=== PATIENT | female | born 2000 | race Caucasian/White ===

== ENCOUNTER → 2019-08-04 14:28 | Outpatient (BNVA) | payer OTHER, SELFPAY | PROVIDERS: Family Provider Family Medicine; PCP Family Medicine; Visit Provider Nurse Practitioner Family | DX: K29.70 Gastritis, unspecified, without bleeding (principal); K29.00 Acute gastritis without bleeding | CPT/HCPCS: 80053; 85025 ==

== ENCOUNTER → 2020-06-07 10:40 | Outpatient (BNVA) | payer BC, SELFPAY | PROVIDERS: Family Provider Family Medicine; Visit Provider Nurse Practitioner Women's Health | DX: Z01.419 Encounter for gynecological examination (general) (routine) without abnormal findings (principal); N92.6 Irregular menstruation, unspecified; Z30.431 Encounter for routine checking of intrauterine contraceptive device | CPT/HCPCS: 88175 ==

== ENCOUNTER → 2020-06-13 09:38 | Outpatient (BNVA) | payer BC, SELFPAY | PROVIDERS: Family Provider Family Medicine; Visit Provider Nurse Practitioner Women's Health | DX: Z30.431 Encounter for routine checking of intrauterine contraceptive device (principal); N83.202 Unspecified ovarian cyst, left side | CPT/HCPCS: 76830 ==

== ENCOUNTER → 2020-06-15 11:54 | Outpatient (BNVA) | payer BC, SELFPAY | PROVIDERS: Family Provider Family Medicine; Visit Provider Nurse Practitioner | DX: F41.8 Other specified anxiety disorders (principal) | CPT/HCPCS: 80053; 84443; 85025 ==

== ENCOUNTER → 2020-11-06 08:57 | Outpatient (BNVA) | payer BC, SELFPAY | PROVIDERS: Family Provider Family Medicine; PCP Nurse Practitioner; Visit Provider Nurse Practitioner Family | DX: Z20.822 Contact with and (suspected) exposure to COVID-19 (principal) | CPT/HCPCS: 87635 ==

== ENCOUNTER → 2021-02-07 08:01 | Outpatient (BNVA) | payer BC, SELFPAY | PROVIDERS: Family Provider Family Medicine; PCP Nurse Practitioner; Visit Provider Nurse Practitioner Women's Health | DX: N92.6 Irregular menstruation, unspecified (principal) | CPT/HCPCS: 81025 ==

== ENCOUNTER → 2021-02-15 11:48 | Outpatient (BNVA) | payer BC, SELFPAY | PROVIDERS: Family Provider Family Medicine; PCP Nurse Practitioner; Visit Provider Nurse Practitioner Women's Health | DX: O26.859 Spotting complicating pregnancy, unspecified trimester (principal); Z3A.00 Weeks of gestation of pregnancy not specified | CPT/HCPCS: 84702; 85025; 86850; 86900 ==

== ENCOUNTER → 2021-02-18 10:15 | Outpatient (BNVA) | payer BC, SELFPAY | PROVIDERS: Family Provider Family Medicine; PCP Nurse Practitioner; Visit Provider Nurse Practitioner Women's Health | DX: O26.859 Spotting complicating pregnancy, unspecified trimester (principal); Z3A.00 Weeks of gestation of pregnancy not specified | CPT/HCPCS: 84702 ==

== ENCOUNTER → 2021-02-25 10:41 | Outpatient (BNVA) | payer BC, SELFPAY | PROVIDERS: Family Provider Family Medicine; PCP Nurse Practitioner; Visit Provider Nurse Practitioner Women's Health | DX: O03.4 Incomplete spontaneous abortion without complication (principal) | CPT/HCPCS: 84702 ==

== ENCOUNTER 2021-10-16 06:49 | Outpatient (CLI) | payer BC, MEDICAID, SELFPAY ==
[2021-10-16 06:49] VITALS: BMI 36.6
[2021-10-16 06:58] VITALS: TEMP 35.6
[2021-10-16 07:01] VITALS: BP 117/56; PULSE 97
[2021-10-16 07:05] VITALS: RESP 18
[2021-10-16 07:36] LABS: Basophils % 0.3 %; Eosinophils # 0.1 10^3/uL (0.0-0.8); Eosinophils % 0.7 %; Hematocrit 35.8 % (37.0-47.0); Hemoglobin 12.2 g/dL (11.5-15.3); Lymphocytes # 2.3 10^3/uL (0.8-4.8); Mean Corpuscular HGB Conc 34.1 g/dL (30.0-36.0); Mean Corpuscular Hemoglobin 32.3 pg (28.0-34.0); Mean Corpuscular Volume 94.7 fl (81-99); Mean Platelet Volume 9.5 fL (7.4-10.4); Monocytes # 0.9 10^3/uL (0.2-0.9); Monocytes % 6.3 %; Neutrophils # 10.18 10^3/uL (1.8-7.7); Nucleated Red Blood Cells % 0 %; Platelet Count 221 10^3/cmm (130-400); Red Blood Count 3.78 10^6/uL (4.1-5.3); Red Cell Distribution Width 12.9 % (12.1-15.1); White Blood Count 13.8 10^3/uL (4.0-10.0)
[2021-10-16] MEDS: lactated ringers 1,000 ML 999 ML IV (07:38)
[2021-10-16] MEDS: ondansetron 2 mg/ML SDV 2 mL 4 MG IVP (07:38)
[2021-10-16 07:50] LABS: Chloride 103 mmol/L (98-107); Potassium 3.8 mmol/L (3.5-5.1); Sodium 140 mmol/L (136-145)
[2021-10-16 08:26] LABS: Bacteria Urine TRACE /hpf; Bilirubin Urine Neg (Negative); Blood Urine Neg (Negative); Glucose Urine UA Norm (Normal); Ketones Urine Negative (Negative); Leukocyte Esterase Urine Negative (Negative); Mucus Urine 1+ /hpf; Nitrate Urine Negative (Negative); Protein Urine Neg (Negative); Urine Appearance SL Hazy (CLEAR); Urine Color Yellow (Yellow); Urobilinogen Urine Norm (Negative); pH Urine 6.5 (5-7)
[2021-10-16 08:27] LABS: Add Urine Culture? No; Amorphous Sediment Urine 2+ /hpf; Coarse Granular Casts Urine T /lpf
[2021-10-16 08:34] LABS: Alanine Aminotransferase 16 U/L (0-33); Alkaline Phosphatase 175 IU/L (35-105); Anion Gap 18.8 (5-19); Aspartate Amino Transferase 17 U/L (0-32); Blood Urea Nitrogen 7 mg/dL (6-20); Calcium 9.3 mg/dL (8.5-10.5); Carbon Dioxide 22 mmol/L (22-29); Globulin 2.5 g/dL (1.3-4.6); Glomerular Filtration Rate 199.6 mL/min (90-130); Glucose 104 mg/dL (65-115); Osmolality Calculated 288 mOsm/kg (285-295); Total Bilirubin 0.2 mg/dL (0.15-1.2); Total Protein 5.9 g/dL (6.6-8.7)
[2021-10-16 08:44] LABS: Albumin Level 3.4 g/dL (3.5-5.2)
[2021-10-16] MEDS: acetaminophen 325 mg Tablet 650 MG PO (09:08)
[2021-10-16] MEDS: famotidine 20 mg/2 mL INJ IVP (09:08)
== END 2021-10-16 09:24 | disposition home or self-care (01) ==
LOC: OPOB 06:49 → OBGYN 06:50
PROVIDERS: Family Provider Family Medicine; PCP Nurse Practitioner; Visit Provider Family Medicine
DX: O26.899 Other specified pregnancy related conditions, unspecified trimester (principal); Z3A.00 Weeks of gestation of pregnancy not specified; M54.9 Dorsalgia, unspecified
CPT/HCPCS: 36415; 59025; 80053; 81001; 85025; 96374; 99211; J2405; J3490

== ENCOUNTER 2022-01-11 19:40 | Observation (INO) | payer BC, MEDICAID, SELFPAY ==
[2022-01-11 20:15] VITALS: BP 123/79; PULSE 80; RESP 18; TEMP 36.3; O2SAT 97; BMI 36.6
--- NOTE | 2022-01-11 20:35 | USR_ITS ---
PROCEDURE INFORMATION: Exam: US Abdomen, Limited; Right Upper Quadrant Exam date and time: 01/11/2022 9:07 PM Age: 21 years old Clinical indication: Abdominal pain; Acute; Additional info: Ruq pain TECHNIQUE: Imaging protocol: Real time ultrasound of the abdomen with image documentation. Limited exam focused on the right upper quadrant. COMPARISON: US transvaginal [id number] 06/13/2020 9:41 AM FINDINGS: Liver: Normal. No masses. Gallbladder: Small gallstones and sludge noted at the gallbladder neck. Borderline gallbladder wall thickening at 3-4 mm. No gallbladder distension. Positive sonographic Gannon sign. Biliary ducts: Normal. No stones. No dilation. Pancreas: Visualized pancreas is unremarkable. Right kidney: Right kidney measures 10.5 cm in length. No mass. No hydronephrosis. US/US gall bladder [id number] IMPRESSION: Small gallstones and sludge at the gallbladder neck. Sonographic findings are equivocal for acute cholecystitis. Correlate with clinical presentation and if clinically warranted can be further evaluated with nuclear medicine HIDA scan.
[2022-01-11 20:36] LABS: Basophils # 0.1 10^3/uL (0.0-0.1); Basophils % 0.7 %; Eosinophils # 0.1 10^3/uL (0.0-0.8); Eosinophils % 1.7 %; Hematocrit 40.3 % (37.0-47.0); Hemoglobin 13.2 g/dL (11.5-15.3); Lymphocytes # 2.3 10^3/uL (0.8-4.8); Lymphocytes % 31.6 %; Mean Corpuscular HGB Conc 32.8 g/dL (30.0-36.0); Mean Corpuscular Hemoglobin 30.2 pg (28.0-34.0); Mean Corpuscular Volume 92.2 fl (81-99); Mean Platelet Volume 8.7 fL (7.4-10.4); Monocytes # 0.5 10^3/uL (0.2-0.9); Monocytes % 6.3 %; Neutrophils # 4.26 10^3/uL (1.8-7.7); Neutrophils % 59.6 %; Nucleated Red Blood Cells % 0 %; Platelet Count 305 10^3/cmm (130-400); Red Blood Count 4.37 10^6/uL (4.1-5.3); Red Cell Distribution Width 12.1 % (12.1-15.1); White Blood Count 7.2 10^3/uL (4.0-10.0)
--- NOTE | 2022-01-11 20:36 | ED_ITS ---
HPI - Abdominal Pain General: Chief Complaint: Abdominal Pain Stated Complaint: ABD Pain Time Seen by Provider: 01/11/22 20:19 Source: patient and family History of Present Illness: 21-year-old female who tells me she has right upper quadrant pain that started yesterday in the morning. She has had 4 episodes of this pain. She vomited twice today because of the pain. She has been nauseated. Pain is a sharp stabbing type pain that radiates to her right upper back. No fever. No history of belly surgery. She had 1 episode of loose stool. She gave by vaginal delivery on 12/24. MD elicited complaint: abdominal pain Location: RUQ Quality: stabbing and sharp Radiation: none Relieving factors: nothing Associated Symptoms: Reports change in bowel habits, nausea, poor appetite and vomiting; Denies belching, chills, constipation, fever(s), hematochezia and hematemesis Related Data: Date of Last Menstrual Period: 11/10/20 Review of Systems Const: Denies: fever(s) or chills Card: Denies: chest pain or palpitations Resp: Denies: dyspnea, productive cough or non-productive cough GI: Reports: nausea, vomiting and change in bowel habits; Denies: hematemesis, constipation, belching or hematochezia : Reports: flank pain (Right) Musc: Denies: neck pain PFSH ED PFSH: Medical History Anxiety with depression Environmental and seasonal allergies History of 2019 novel coronavirus disease (COVID-19) No pertinent past medical history neghx: htn,dm,thyroid,dvt/pe PCP: None Surgical History No pertinent past surgical history Family History Grandmother Hypertension Maternal and Paternal Family/Other Heart disease Paternal Uncle Ovarian cancer maternal great aunt Brother Heart disease Denies family history of Colon cancer Diabetes Hypercholesteremia Breast cancer Uterine cancer Thyroid disease Female Reproductive History: Date of last menstrual period: 11/10/20 Physical Exam Const: COMMON NORMALS: no acute distress GENERAL APPEARANCE: cooperative; not ill appearing HENMT: COMMON NORMALS: normocephalic and atraumatic HEAD & SCALP: normocephalic and atraumatic NOSE: Normal nares present Eye: COMMON NORMALS: Equal, round and reactive pupils present and EOMs intact bilaterally PUPIL: Yes Equal, round and reactive pupils present Chest: CHEST: Yes Symmetrical chest wall rise Resp: COMMON NORMALS: normal respiratory effort, No use of accessory muscles and clear to auscultation bilaterally AUSCULTATION: clear to auscultation bilaterally Cardio: COMMON NORMALS: regular rate and regular rhythm RATE: regular rate RHYTHM: regular rhythm GI: COMMON NORMALS: Normal to inspection, nondistended, normoactive bowel sounds present and Soft to palpation PALPATION: Yes Soft to palpation and Yes Tenderness to palpation present (GI) (Mild currently) Details: RUQ : COMMON NORMALS: Yes no CVA tenderness BLADDER/KIDNEY EXAM: Yes no CVA tenderness Back/Pelvis: COMMON NORMALS: no CVA tenderness Neuro: MATTEO COMA SCALE: document GCS findings [place] coma scale eye opening: Spontaneous Matteo coma scale verbal response: Orientated Matteo coma scale motor response: Obey commands Matteo coma scale total score: 15 Psych: COMMON NORMALS: mental status grossly normal and cooperative Course Vital Signs: Vital signs: Vital Signs Temperature 97.3 F L 01/11/22 20:15 Pulse Rate 80 01/11/22 20:15 Respiratory Rate 18 01/11/22 20:15 Blood Pressure 123/79 01/11/22 20:15 Pulse Oximetry 97 01/11/22 20:15 Oxygen Delivery Me thod 01/11/22 20:15 MDM - Abdominal Pain Medical Decision Making 21-year-old female with right upper quadrant pain. She is afebrile. Her vitals are good. CBC is normal. BMP is normal. However, liver enzymes are significantly elevated with AST and ALT around 2000. Total bili is 1.7. Ultra sound reveals a borderline wall in terms of thickness of the gallbladder. No definite bile duct dilatation. There are stones in the neck of the gallbladder. Because of elevation of LFTs, right upper quadrant pain, ERCP had to be completed. It shows normal bile ducts with a 2.7 mm gallbladder wall and minimal pericholecystic fluid. The patient will be admitted for acute cholecystitis. She is receiving IV Zosyn. Surgery has been consulted from the ER. They will see her later this morning. Lab Data : 01/11/22 20:32 01/11/22 20:23 Labs/Radiology: Radiology Impressions Gallbladder Ultrasound 01/11/22 20:35 IMPRESSION: Small gallstones and sludge at the gallbladder neck. Sonographic findings are equivocal for acute cholecystitis. Correlate with clinical presentation and if clinically warranted can be further evaluated with nuclear medicine HIDA scan. Laboratory Results WBC 7.2 10^3/uL (4.0-10.0) 01/11/22: RBC 4.37 10^6/uL (4.1-5.3) 01/11/22: Hgb 13.2 g/dL (11.5-15.3) 01/11/22: Hct 40.3 % (37.0-47.0) 01/11/22: MCV 92.2 fl (81-99) 01/11/22: MCH 30.2 pg (28.0-34.0) 01/11/22: MCHC 32.8 g/dL (30.0-36.0) 01/11/22: RDW 12.1 % (12.1-15.1) 01/11/22: Plt Count 305 10^3/cmm (130-400) 01/11/22: MPV 8.7 fL (7.4-10.4) 01/11/22: Neut % (Auto) 59.6 % 01/11/22: Lymph % (Auto) 31.6 % 01/11/22: Grand % (Auto) 6.3 % 01/11/22: Eos % (Auto) 1.7 % 01/11/22: Baso % (Auto) 0.7 % 01/11/22: Neut # (Auto) 4.26 10^3/uL (1.8-7.7) 01/11/22: Lymph # (Auto) 2.3 10^3/uL (0.8-4.8) 01/11/22: Grand # (Auto) 0.5 10^3/uL (0.2-0.9) 01/11/22: Eos # (Auto) 0.1 10^3/uL (0.0-0.8) 01/11/22 20:32 Baso # (Auto) 0.1 10^3/uL (0.0-0.1) 01/11/22: Nucleated RBC % (auto) 0 % 01/11/22: Nucleated RBCs # 0.0 /100WBC 01/11/22 20:32 Sodium 138 mmol/L (136-145) 01/11/22 20: Potassium 3.9 mmol/L (3.5-5.1) 01/11/22 20: Chloride 100 mmol/L (98-107) 01/11/22 20: Carbon Dioxide 25 mmol/L (22-29) 01/11/22: Anion Gap 16.9 (5-19) 01/11/22 20: BUN 10 mg/dL (6-20) 01/11/22: Creatinine 0.7 mg/dL (0.5-0.9) 01/11/22: GFR Calculation 103.7 mL/min (90-130) 01/11/22 20: Glucose 85 mg/dL (65-115) 01/11/22 20: Calculated Osmolality 284 mOsm/kg (285-295) L 01/11/22: Calcium 9.3 mg/dL (8.5-10.5) 01/11/22 20: Total Bilirubin 1.6 mg/dL (0.15-1.2) H 01/11/22 20: Total Bilirubin 1.7 mg/dL (0.15-1.2) H 01/11/22: Direct Bilirubin 1.40 mg/dL (0.00-0.30) H 01/11/22 20: Indirect Bilirubin 0.20 01/11/22 20: GGT 507 U/L (5-36) H 01/11/22 20: AST 1012 U/L (0-32) H 01/11/22 20: ALT 1018 U/L (0-33) H 01/11/22 20: Alkaline Phosphatase 660 U/L (35-105) H 01/11/22 20: C-Reactive Protein 12.8 mg/L (0.0-4.9) H 01/11/22 20: Total Protein 7.1 g/dL (6.6-8.7) 01/11/22 20: Albumin 4.4 g/dL (3.5-5.2) 01/11/22 20: Globulin 2.7 g/dL (1.3-4.6) 01/11/22 20: Lipase 52 U/L (13-60) 01/11/22 20: Procalcitonin 0.34 ng/mL (0-0.5) 01/11/22 20: HCG, Qual Negative (Negative) 01/11/22 20: Urine Color Dark yellow (Yellow) 01/11/22 21:18 Urine Appearance Clear (CLEAR) 01/11/22 21:18 Urine pH 5 (5-7) 01/11/22 21:18 Ur Specific Holt 1.015 (1.005-1.030) 01/11/22 21:18 Urine Protein Trace (Negative) 01/11/22 21:18 Urine Glucose (UA) Norm (Normal) 01/11/22 21:18 Urine Ketones Negative (Negative) 01/11/22 21:18 Urine Blood 3+ (Negative) H 01/11/22 21:18 Urine Nitrate Negative (Negative) 01/11/22 21:18 Urine Bilirubin 2+ (Negative) H 01/11/22 21:18 Urine Urobilinogen Neg mg/dL (Negative) 01/11/22 21:18 Ur Leukocyte Esterase 2+ (Negative) H 01/11/22 21:18 Urine RBC 15-25 /hpf (0-2) H 01/11/22 21:18 Urine WBC 15-25 /hpf (0-5) H 01/11/22 21:18 Ur Squamous Epith Cells 5-10 /hpf (0-5) H 01/11/22 21:18 Amorphous Sediment Not Reportable 01/11/22 21:18 Urine Bacteria Trace /hpf (NONE) 01/11/22 21:18 Urine Mucus 1+ /hpf 01/11/22 21:18 Acetaminophen < 5.0 ug/mL (10-30) L 01/11/22 20: Hepatitis A IgM Ab Non-reactive (Nonreactive) 01/11/22: Hep Bs Antigen Non-reactive (Nonreactive) 01/11/22:23 Hep B Core IgM Ab Non-reactive (Nonreactive) 01/11/22 20:23 Hepatitis C Antibody Non-reactive (Nonreactive) 01/11/22 20:23 Discharge Plan Discharge Patient Disposition: Admitted As Inpatient Clinical Impression: Right upper quadrant pain, Acute cholecystitis Condition: Stable Prescriptions: No Action Zyrtec 10 mg capsule 10 mg PO DAILY Gummies 400 mcg-35 mg- 25 mg-5 mg tablet,chewable 2 tab PO DAILY sertraline 100 mg tablet 100 mg PO DAILY 30 Days Qty: 30 5RF Referrals: Stephanie Beckett, NIGHT WAREHOUSE MANAGER-C [Primary Care Provider] - Coding Level of Care Code ED Stocklayer for Chg Fwd Exam Comprehensive
[2022-01-11 20:46] LABS: HCG, Serum Qual Negative (Negative)
[2022-01-11 20:53] LABS: Albumin Level 4.4 g/dL (3.5-5.2); Alkaline Phosphatase 660 U/L (35-105); Anion Gap 16.9 (5-19); Blood Urea Nitrogen 10 mg/dL (6-20); Calcium 9.3 mg/dL (8.5-10.5); Carbon Dioxide 25 mmol/L (22-29); Chloride 100 mmol/L (98-107); Globulin 2.7 g/dL (1.3-4.6); Glomerular Filtration Rate 103.7 mL/min (90-130); Glucose 85 mg/dL (65-115); Lipase 52 U/L (13-60); Osmolality Calculated 284 mOsm/kg (285-295); Potassium 3.9 mmol/L (3.5-5.1); Sodium 138 mmol/L (136-145); Total Bilirubin 1.7 mg/dL (0.15-1.2); Total Protein 7.1 g/dL (6.6-8.7)
[2022-01-11 21:04] LABS: Alanine Aminotransferase 1018 U/L (0-33)
[2022-01-11 21:08] LABS: Aspartate Amino Transferase 1012 U/L (0-32)
[2022-01-11 22:06] LABS: Acetaminophen < 5.0 ug/mL (10-30)
[2022-01-11 22:08] LABS: Add Urine Microscopic? YES; Bilirubin Urine 2+ (Negative); Blood Urine 3+ (Negative); Glucose Urine UA Norm (Normal); Ketones Urine Negative (Negative); Leukocyte Esterase Urine 2+ (Negative); Nitrate Urine Negative (Negative); Protein Urine Trace (Negative); Specific Gravity, Urine 1.015 (1.005-1.030); Urine Appearance Clear (CLEAR); Urine Color Dark Yellow (Yellow); Urobilinogen Urine Neg (Negative); pH Urine 5 (5-7)
[2022-01-11 22:09] LABS: RBC Urine 15-25 /hpf (0-2); WBC Urine 15-25 /hpf (0-5)
[2022-01-11 22:10] LABS: Add Urine Culture? Yes; Bacteria Urine TRACE /hpf; Mucus Urine 1+ /hpf
[2022-01-11 22:16] LABS: Hepatitis A Antibody IgM Non-Reactive (Nonreactive); Hepatitis B Core IgM Non-Reactive (Nonreactive); Hepatitis B Surface Antigen Non-Reactive (Nonreactive); Hepatitis C Virus Antibody Non-Reactive (Nonreactive)
[2022-01-12] VITALS (8 sets, daily range): BP systolic 98–122; BP diastolic 53–79; PULSE 43–66; RESP 16–18; TEMP 36.3–36.7; O2SAT 97–98
--- NOTE | 2022-01-12 | MRR_ITS ---
[facility] Final Radiology Report Call: [phone] assistance Online chat: [email or web address] Name: BRIGETTE KELSEY Age: 21Years F Date: 01/12/2022 SSN: -- : 2000 Study: MR ABDOMEN WO Requesting Physician: MINLA COLON Images: [id number] PROCEDURE INFORMATION: Exam: MR Abdomen Without Contrast Exam date and time: 01/12/2022 12:13 AM Age: 21 years old Clinical indication: Unspecified abdominal pain; Tenderness; Right upper quadrant (ruq); Patient HX: Elevated liver enzymes ruq pain, TECHNIQUE: Imaging protocol: Magnetic resonance imaging of the abdomen without contrast. COMPARISON: US gall bladder [id number] 01/11/2022 9:07 PM FINDINGS: Liver: No mass. Gallbladder and bile ducts: There are numerous small gallstones seen within the gallbladder neck. There is mild gallbladder wall thickening measuring approximately 2.7 mm. There is fluid or edema seen surrounding the gallbladder. Pancreas: Unremarkable. No ductal dilation. Spleen: Unremarkable. No splenomegaly. Adrenal glands: Unremarkable. No mass. Kidneys and ureters: Unremarkable. No solid mass. No hydronephrosis. Stomach and bowel: Visualized stomach and intestines are unremarkable. Intraperitoneal space: No free fluid. Vasculature: No abdominal aortic aneurysm. Bones/joints: Unremarkable. Soft tissues: Unremarkable. IMPRESSION: 1. Multiple small gallstones 2. Mild gallbladder wall thickening measuring 2.7 mm.. Some fluid signal intensity is seen adjacent to the gallbladder that may represent pericholecystic fluid or edema. Thank you for allowing us to participate in the care of your patient. Dictated and Authenticated by: Wilberto Petit MD 01/12/2022 2:23 AM Central Time ([place] & [place]) [place]
--- NOTE | 2022-01-12 03:28 | P.HP_ITS ---
Providers/Chief Complaint Primary Care Provider: DOMINGA HarrisonC Chief Complaint: ABD Pain History of Present Illness Pita Méndez is a 21 year old female with a past medical history of anxiety and depression, recent history of normal spontaneous vaginal delivery, G1, P1, who presents to [facility] for a 24-hour history of intermittent right upper quadrant pain, with nausea, no vomiting, no lightheadedness, dizz iness, no fevers, no chills. She tells me that she had a normal spontaneous vaginal delivery obviously 24 December, she is breast-feeding, she has been doing well, but for the last 24 hours she started develop right upper quadrant abdominal pain associate with nausea, decreased oral intake, and some diarrhea. Review of Systems Card: Denies: chest pain Resp: Denies: dyspnea GI: Reports: abdominal pain and nausea Medications/Allergies Home Medications Medication Instructions Recorded Confirmed Last Taken Type cetirizine 10 mg capsule (Zyrtec) 10 mg PO DAILY 06/07/20 02/26/21 Unknown Histo ry PNV 153-FA 400 mcg-om3 35 mg-dha 2 tab PO DAILY 09/07/20 02/26/21 Unknown History 25 mg-epa 5 mg-fish oil chew tablet ( Gummies) sertraline 100 mg tablet 100 mg PO DAILY 30 days #30 tabs 01/17/21 02/26/21 Unknown Rx Allergies Allergy/AdvReac Type Severity Reaction Status Date / Time No Known Allergies Allergy Verified 10/16/21 07:36 PFSH Acute PFSH: Medical History Anxiety with depression Environmental and seasonal allergies History of 2019 novel coronavirus disease (COVID-19) No pertinent past medical history neghx: htn,dm,thyroid,dvt/pe PCP: None Surgical History No pertinent past surgical history Family History Grandmother Hypertension Maternal and Paternal Family/Other Heart disease Paternal Uncle Ovarian cancer maternal great aunt Brother Heart disease Denies family history of Colon cancer Diabetes Hypercholesteremia Breast cancer Uterine cancer Thyroid disease Female Reproductive History: Date of last menstrual period: 11/10/20 Vitals/I&O/Wt Last Vital Signs Temp 97.3 F L 01/11/22 20:15 Pulse 80 01/11/22 20:15 Resp 18 01/11/22 20:15 BP 123/79 01/11/22 20:15 Pulse Ox 97 01/11/22 20:15 O2 Del Method 01/11/22 20:15 Weight last 48 hrs Weight 87.997 kg Physical Exam Const: COMMON NORMALS: no acute distress and patient oriented x3 HENMT: COMMON NORMALS: normocephalic HEAD & SCALP: normocephalic Neck/C-Spine: COMMON NORMALS: no JVD Resp: COMMON NORMALS: normal respiratory effort, No retractions, No use of accessory muscles and clear to auscultation bilaterally AUSCULTATION: clear to auscultation bilaterally Cardio: COMMON NORMALS: regular rate, regular rhythm, S1 normal heart sound present and S2 normal heart sound present RATE: regular rate RHYTHM: regular rhythm HEART SOUNDS: S1 normal heart sound present and S2 normal heart sound present GI: COMMON NORMALS: Normal to inspection, nondistended, normoactive bowel sounds present, Soft to palpation, non-tender, No hepatosplenomegaly present, no masses and no bruits PALPATION: Yes Soft to palpation and Yes No hepatosplenomegaly present Extremity: COMMON NORMALS: capillary refill normal, no clubbing, cyanosis or edema, no calf tenderness and no pedal edema Neuro: COMMON NORMALS: patient oriented x3 Psych: COMMON NORMALS: mental status grossly normal Data : 01/11/22 20:32 01/11/22 20:23 A&P Assessment and plan (1) Right upper quadrant pain: Status: Acute (2) Transaminitis: Status: Acute Plan Right upper quadrant pain -Concerning for acute cholecystitis -Currently no right upper quadrant pain, no fevers, no nausea -AST 1012 -ALT 1018 -Alk phos 660 -T bili 1.7 -Lipase within normal limits -Right upper quadrant ultrasound -Small gallstones and sludge at the gallbladder neck. Sonographic findings are equivocal for acute cholecystitis. Correlate with clinical presentation and if clinically warranted can be further evaluated with nuclear medicine HIDA scan. -MRCP test pending, but I was told that there is gallbladder wall thickening, no significant intra or extrahepatic biliary dilatation Plan -Admit to general medical floors -Clinical diet -Serial abdominal exams -Continue Zosyn -IV fluids -Morphine as needed for pain -General surgery consulted -Follow MRCP results -Follow liver function studies -Full code -SCDs for DVT prophylaxis -Patient plans on breast-feeding, she pumps, I did advise her that her antibiotics, and pain control, and nausea control medications will be present in her breastmilk. The relative dose is low, but they do carry some risks towards her , however risk is generally low. She wishes any, all questions answered, agreed to proceed Attestations Medical Necessity Statement*: Patient requires hospitalization, outpatient with observation, for right upper quadrant pain Coding Level of Care Code Acute Dye Penetrant Testing Technician for [facility] Leonardo Diagnoses Right upper quadrant pain R10.11 Transaminitis R74.01
[2022-01-12 03:57] LABS: C Reactive Protein 12.8 mg/L (0.0-4.9); Gamma Glutamyl Transferase 507 U/L (5-36); Total Bilirubin 1.6 mg/dL (0.15-1.2)
[2022-01-12 04:03] LABS: Procalcitonin 0.34 ng/mL (0-0.5)
[2022-01-12] MEDS: piperacillin-tazobactam 3.375 GM in sodium chloride 0.9% (plus) 50 ML IV (04:15)
[2022-01-12] MEDS: sodium chloride 0.9% 1,000 ML 999 ML IV (04:16)
[2022-01-12] MEDS: sodium chloride 0.9% 1,000 ML 75 ML IV ×2 (06:12→19:44)
[2022-01-12 07:03] LABS: Thyroid Stimulating Hormone 1.37 uIU/mL (0.27-4.20)
[2022-01-12] MEDS: cefTRIAXone 1,000 MG in sodium chloride 0.9% (plus) 50 ML 100 MG IV (09:22)
[2022-01-12] MEDS: pantoprazole DR 40 mg Tablet PO (09:22)
[2022-01-12] MEDS: sertraline 100 mg Tablet PO (09:22)
[2022-01-12 12:12] LABS: Albumin Level 3.7 g/dL (3.5-5.2); Alkaline Phosphatase 690 U/L (35-105); Anion Gap 17.2 (5-19); Aspartate Amino Transferase 583 U/L (0-32); Blood Urea Nitrogen 9 mg/dL (6-20); Calcium 8.8 mg/dL (8.5-10.5); Carbon Dioxide 21 mmol/L (22-29); Chloride 105 mmol/L (98-107); Globulin 2.4 g/dL (1.3-4.6); Glomerular Filtration Rate 103.7 mL/min (90-130); Glucose 93 mg/dL (65-115); Osmolality Calculated 286 mOsm/kg (285-295); Potassium 4.2 mmol/L (3.5-5.1); Sodium 139 mmol/L (136-145); Total Bilirubin 1.7 mg/dL (0.15-1.2); Total Protein 6.1 g/dL (6.6-8.7)
[2022-01-12 12:24] LABS: Alanine Aminotransferase 883 U/L (0-33)
--- NOTE | 2022-01-12 12:43 | PM.CONSULT ---
Providers/Reason For Consult Consulting Physician/Specialty*: Dr. Jona Santana, DO/General surgery Reason for Consult*: Cholecystitis Attending Physician: Jose Meehan MD Primary Care Provider: SARAH Harrison History of Present Illness History of Present Illness Pita Méndez is a 21 year old female who presented to the hospital with a 2-day history of epigastric and right upper quadrant abdominal pain radiating to her back. She is never had this type of pain before. The pain is sharp and constant. Nothing seems to make the pain better or worse. She did have associated nausea and emesis. Reports some diarrhea. Denies constipation hematochezia and/or melena. LFTs were found to be elevated in the ER. Ultrasound was questionable for possible mild acute cholecystitis. MRCP did not show ductal obstruction or dilation and similarly indicated possible early acute cholecystitis. Review of Systems General: Reports: 10 or more systems reviewed and unremarkable except in HPI and below Medications/Allergies Home Medications Medication Instructions Recorded Confirmed Last Taken Type sertraline 100 mg tablet 100 mg PO DAILY 30 days #30 tabs 01/17/21 01/12/22 01/11/22 Rx docusate sodium 100 mg capsule 100 mg PO BID 01/12/22 01/12/22 01/11/22 History multivitamin with iron 1 tab PO DAILY 01/12/22 01/12/22 01/11/22 History Allergies Allergy/AdvReac Type Severity Reaction Status Date / Time No Known Allergies Allergy Verified 10/16/21 07:36 Current Medications Generic Name Dose Route Start Last Admin Trade Name Freq PRN Reason Stop Dose Admin Sodium Chloride 1,000 mls @ 75 mls/hr 01/12/22 05:33 01/12/22 06:12 Sodium Chloride 0.9% IV 75 mls/hr .[id number] DARIEN Administration Ceftriaxone Sodium 1,000 mg/ 50 mls @ 100 mls/hr 01/12/22 09:15 01/12/22 09:52 Sodium Chloride IV Infused Q24H DARIEN Infusion Protocol Pantoprazole Sodium 40 mg 01/12/22 09:00 01/12/22 09:[address] 40 Mg Tablet PO 40 mg DAILY DARIEN Administration Sertraline HCl 100 mg 01/12/22 09:00 01/12/22 09:22 Sertraline 100 Mg Tablet PO 100 mg DAILY DARIEN Administration PFSH Acute PFSH: Medical History Anxiety with depression Environmental and seasonal allergies History of 2019 novel coronavirus disease (COVID-19) No pertinent past medical history neghx: htn,dm,thyroid,dvt/pe PCP: None Surgical History No pertinent past surgical history Family History Grandmother Hypertension Maternal and Paternal Family/Other Heart disease Paternal Uncle Ovarian cancer maternal great aunt Brother Heart disease Denies family history of Colon cancer Diabetes Hypercholesteremia Breast cancer Uterine cancer Thyroid disease Female Reproductive History: Date of last menstrual period: 11/10/20 Vitals/I&O/Wt Last Vital Signs Temp 97.3 F L 01/12/22 05:44 Pulse 43 L 01/12/22 08:00 Resp 16 01/12/22 08:00 BP 104/61 01/12/22 08:00 Pulse Ox 97 01/12/22 08:00 O2 Del Method 01/12/22 08:00 01/11/22 01/12/22 01/12/22 22:59 06:59 14:59 Intake Total 1050 / 1050 170 / 170 Balance 1050 / 1050 170 / 170 Weight last 48 hrs Weight 194 lb Weight 194 lb Physical Exam Narrative: General : Patient is well developed , no acute distress, oriented x3 Head : Normal cephalic, a-traumatic. Ears : Pinnae and external canal are normal. Hearing is normal. Eyes : PERRLA, Sclera and injection are normal. No conjunctival discharge. Nose : Mucous membranes are without erythema. Throat : buccal mucosa is normal, gums are without significant recession or hypertrophy. Lungs : Equal chest rise bilaterally, no use of accessory muscles, trachea is midline. Cor : Rate and rhythm are normal. Abdomen : Soft, ND, NT, no g/r/m Extremities : No edema, no cyanosis or clubbing, dorsalis pedis pulses are present bilaterally, non-tender to palpation of calves. Upper extremities are normal bilaterally. Back : non-tender to palpation, no CVA tenderness. Neuro : CN II - XII intact, Upper and lower extremities have equal and full strength Data : 01/11/22 20:32 01/12/22 11:38 Micro: Microbiology 01/12/22 06:36 Blood Culture - Preliminary Blood SPECIMEN COLLECTED 01/12/22 06:43 Blood Culture - Preliminary Blood SPECIMEN COLLECTED A&P Assessment and plan (1) Acute cholecystitis: Status: Acute (2) Transaminitis: Status: Acute (3) Hyperbilirubinemia: Status: Acute Plan Continue Rocephin Regular diet N.p.o. after midnight To OR tomorrow for laparoscopic cholecystectomy The risks and benefits of the procedure, including but not limited to, bleeding, infection, scar, numbness, pain, damage to surrounding structures, damage to common bile duct requiring additional surgery, conversion to an open procedure, were explained to the patient. He is understanding of the risks and wishes to proceed. Coding Level of Care Code Acute Private Branch Exchange Service Advisor for [facility] Leonardo Diagnoses Acute cholecystitis K81.0 Transaminitis R74.01 Hyperbilirubinemia E80.6
[2022-01-13] VITALS (13 sets, daily range): BP systolic 98–121; BP diastolic 64–80; PULSE 53–76; RESP 12–22; TEMP 36.3–36.9; O2SAT 94–99
[2022-01-13 05:40] LABS: Basophils # 0.1 10^3/uL (0.0-0.1); Basophils % 0.8 %; Eosinophils # 0.2 10^3/uL (0.0-0.8); Eosinophils % 2.4 %; Hematocrit 39.4 % (37.0-47.0); Hemoglobin 12.6 g/dL (11.5-15.3); Lymphocytes # 2.5 10^3/uL (0.8-4.8); Mean Corpuscular Hemoglobin 30.3 pg (28.0-34.0); Mean Corpuscular Volume 94.7 fl (81-99); Monocytes # 0.4 10^3/uL (0.2-0.9); Monocytes % 4.7 %; Neutrophils # 4.48 10^3/uL (1.8-7.7); Neutrophils % 58.8 %; Nucleated Red Blood Cells % 0 %; Platelet Count 303 10^3/cmm (130-400); Red Blood Count 4.16 10^6/uL (4.1-5.3); Red Cell Distribution Width 12.4 % (12.1-15.1); White Blood Count 7.6 10^3/uL (4.0-10.0)
[2022-01-13 06:08] LABS: Alanine Aminotransferase 667 U/L (0-33); Albumin Level 3.7 g/dL (3.5-5.2); Alkaline Phosphatase 678 U/L (35-105); Anion Gap 14.9 (5-19); Aspartate Amino Transferase 324 U/L (0-32); Blood Urea Nitrogen 10 mg/dL (6-20); Calcium 8.6 mg/dL (8.5-10.5); Carbon Dioxide 23 mmol/L (22-29); Chloride 106 mmol/L (98-107); Globulin 2.4 g/dL (1.3-4.6); Glomerular Filtration Rate 103.7 mL/min (90-130); Glucose 93 mg/dL (65-115); Osmolality Calculated 289 mOsm/kg (285-295); Phosphorus 4.2 mg/dL (2.5-4.5); Potassium 3.9 mmol/L (3.5-5.1); Sodium 140 mmol/L (136-145); Total Bilirubin 0.6 mg/dL (0.15-1.2); Total Protein 6.1 g/dL (6.6-8.7)
[2022-01-13 06:10] LABS: INR 0.88 (0.8-1.2)
[2022-01-13 06:14] LABS: Platelet Count 303 10^3/cmm (130-400)
--- NOTE | 2022-01-13 06:22 | ANES.PREANE2 ---
Pre-Anesthetic Assessment Height/Weight: Height 1.55 m Weight 87.997 kg Temp Pulse Resp BP Pulse Ox O2 Del Method 98.1 F 53 L 16 98/64 98 01/13/22 04:22 01/13/22 04:22 01/13/22 04:22 01/13/22 04:22 01/13/22 04:22 01/13/22 04:22 Preop Diagnosis: Acute cholecystitis Operation Date: 01/13/22 08:30 Proposed Procedures p Laparoscopic Cholecystectomy(Not Applicable) - Jona Santana DO Familial anesthetic complications: None Was Beta Kelsi taken within 24 hours: N/A Was Clonidine taken within 24 hours: N/A Last intake: Intake Last Liquid Date 01/12/22 Last Solid Date 01/12/22 Social No alcohol and No tobacco Exam alert, oriented x 3, clear to auscultation bilaterally and regular rate & rhythm Airway Submandibular: within normal limits Cervical ROM: within normal limits Mallampati: Class II Dentition: full History/ROS No significant complaints Pulmonary None reported CV/HEM None reported None reported Hepatic None reported Transaminitis GI None reported Acute cholecystitis with transaminitis Metabolic None reported Obesity Musc/skel None reported Neuropsych Anxiety and Depression Anesthetic Plan ASA status: 2 Anesthesia: Anesthesia Evaluation and General Other: We discussed risk and benefits of general anesthesia including PONV, sore throat (sometimes severe), corneal abrasion, positioning and peripheral nerve injuries, life threatening allergic reaction, post operative ICU admission requiring prolonged intubation, stroke, heart attack, , and rare incidences of recall. Patient consents to proceed with general anesthesia. Risk of > 500 ml blood loss (7ml/kg in children): No Other Pertinent Information Patient . Medications/Allergies Home Medications Medication Instructions Recorded Confirmed Last Taken Type sertraline 100 mg tablet 100 mg PO DAILY 30 days #30 tabs 01/17/21 01/12/22 01/11/22 Rx docusate sodium 100 mg capsule 100 mg PO BID 01/12/22 01/12/22 01/11/22 History multivitamin with iron 1 tab PO DAILY 01/12/22 01/12/22 01/11/22 History Allergies Allergy/AdvReac Type Severity Reaction Status Date / Time No Known Allergies Allergy Verified 10/16/21 07:36 Current Medications Generic Name Dose Route Start Last Admin Trade Name Freq PRN Reason Stop Dose Admin Sodium Chloride 1,000 mls @ 75 mls/hr 01/12/22 05:33 01/12/22 19:44 Sodium Chloride 0.9% IV 75 mls/hr .[id number] DARIEN Administration Ceftriaxone Sodium 1,000 mg/ 50 mls @ 100 mls/hr 01/12/22 09:15 01/12/22 09:52 Sodium Chloride IV Infused Q24H DARIEN Infusion Protocol Pantoprazole Sodium 40 mg 01/12/22 09:00 01/12/22 09:[address] 40 Mg Tablet PO 40 mg DAILY DARIEN Administration Sertraline HCl 100 mg 01/12/22 09:00 01/12/22 09:22 Sertraline 100 Mg Tablet PO 100 mg DAILY DARIEN Administration PFSH Anesthesia Medical History Anxiety with depression Environmental and seasonal allergies History of 2019 novel coronavirus disease (COVID-19) No pertinent past medical history neghx: htn,dm,thyroid,dvt/pe PCP: None Surgical History No pertinent past surgical history Family History Grandmother Hypertension Maternal and Paternal Family/Other Heart disease Paternal Uncle Ovarian cancer maternal great aunt Brother Heart disease Denies family history of Colon cancer Diabetes Hypercholesteremia Breast cancer Uterine cancer Thyroid disease Female Reproductive History Date of last menstrual period: 11/10/20 Data Anesthesia : 01/13/22 05:21 01/13/22 05:21 Short CBC 01/11/22 01/13/22 01/13/22 Range/Units 20:32 05:21 05:21 WBC 7.2 7.6 (4.0-10.0) 10^3/uL Hgb 13.2 12.6 (11.5-15.3) g/dL Hct 40.3 39.4 (37.0-47.0) % MCV 92.2 94.7 (81-99) fl Plt Count 305 303 303 (130-400) 10^3/cmm Neut % (Auto) 59.6 58.8 % Neut # (Auto) 4.26 4.48 (1.8-7.7) 10^3/uL BMP 01/11/22 01/12/22 01/13/22 20:23 11:38 05:21 Sodium 138 139 140 Potassium 3.9 4.2 3.9 Chloride 100 105 106 Carbon Dioxide 25 21 L 23 BUN 10 9 10 Creatinine 0.7 0.7 0.7 Glucose 85 93 93 Calcium 9.3 8.8 8.6 Liver Function 01/11/22 01/11/22 01/12/22 Range/Units 20:23 20:23 11:38 Total Bilirubin 1.7 H 1.6 H 1.7 H (0.15-1.2) mg/dL Direct Bilirubin 1.40 H (0.00-0.30) mg/dL GGT 507 H (5-36) U/L AST 1012 H 583 H (0-32) U/L ALT 1018 H 883 H (0-33) U/L Alkaline Phosphatase 660 H 690 H (35-105) U/L Albumin 4.4 3.7 (3.5-5.2) g/dL 01/13/22 Range/Units 05:21 Total Bilirubin 0.6 (0.15-1.2) mg/dL Direct Bilirubin (0.00-0.30) mg/dL GGT (5-36) U/L AST 324 H (0-32) U/L ALT 667 H (0-33) U/L Alkaline Phosphatase 678 H (35-105) U/L Albumin 3.7 (3.5-5.2) g/dL Urine 01/11/22 Range/Units 21:18 Urine Color Dark yellow (Yellow) Urine Appearance Clear (CLEAR) Urine pH 5 (5-7) Ur Specific [place] 1.015 (1.005-1.030) Urine Protein Trace (Negative) Urine Glucose (UA) Norm (Normal) Urine Ketones Negative (Negative) Urine Nitrate Negative (Negative) Urine Bilirubin 2+ H (Negative) Ur Leukocyte Esterase 2+ H (Negative) Urine RBC 15-25 H (0-2) /hpf Urine WBC 15-25 H (0-5) /hpf Coags 01/11/22 01/13/22 20:23 05:21 PT 12.20 INR 0.88 APTT 26.0 C-Reactive Protein 12.8 H Microbiology 01/12/22 06:36 Blood Culture - Preliminary Blood SPECIMEN COLLECTED 01/12/22 06:43 Blood Culture - Preliminary Blood SPECIMEN COLLECTED Cardiac Studies: No Data to Display
[2022-01-13 06:52] LABS: Fibrinogen 353 mg/dL (174-498)
--- NOTE | 2022-01-13 07:31 | PC.NURSE ---
Patient leaving unit for surgery
--- NOTE | 2022-01-13 08:25 | W.PM.OPSUD ---
Surgery/Procedure H&P Update DATE OF PROCEDURE: January 13, 2022 DATE H&P PERFORMED: 01/12/22 CHANGES TO PREVIOUS DOCUMENTATION: NONE PREOP DIAGNOSIS: Acute cholecystitis PLANNED PROCEDURE: Operation Date: 01/13/22 08:30 Proposed Procedures p Laparoscopic Cholecystectomy(Not Applicable) - Jona Santana DO
--- NOTE | 2022-01-13 09:43 | SUR.PHASEI ---
0931 PT TO PACU 5 AWAKE ALERT, VERBALIZING APPROPRIATLY, ABDOMEN SOFT WITH 5 SITES WITH SKIN GLUE NO BRUISING OR HEMATOMA NOTED, ABDOMEN SOFT, BILAT SCDS ON IV TO LT AC #20 PATENT WITH 900ML NS AT KVO RATE PER GRAVITY, ID BRACELET TO LT WRIST , PT ID'D WITH 2 IDENTIFIERS MONITOR SR WITH NO ECTOPY, VSS.
--- NOTE | 2022-01-13 09:48 | SUR.PHASEI ---
PT ON RA AWAKE ALERT TALKATIVE TAKING OCC ICE CHIPS.
--- NOTE | 2022-01-13 10:15 | SUR.PHASEI ---
0926 PT FAMILLY UPDATED AND SENT TO PT ROOM DR HASTINGS CALLED AND INFORMED FAMILY HAD NOT BEEN UPDATED BY HIM, HE STATED THAT HE WOULD SEE THEM IN THE ROOM, FAMILY UPDATED OF THIS, PT TO FLOOR PER BED PT AWAKE ALERT , [facility]
--- NOTE | 2022-01-13 10:29 | PC.NURSE ---
Received orders for hydrocodone 7.25-325mg PO Q6h
--- NOTE | 2022-01-13 10:38 | P.OP_ITS ---
Operative Report Date of procedure: January 13, 2022 Pre-op diagnosis: Preop Diagnosis Acute cholecystitis Post-op diagnosis: same Procedure done: Laparoscopic cholecystectomy Specimens removed/disposition: Gallbladder Surgeon: Dr. Jona Santana DO Anesthesia: General Estimated blood loss (mL): 5 Complications: None apparent Brief History: This very pleasant 21-year-old female who came in with right upper quadrant abdominal pain. Work-up indicated acute cholecystitis with elevated LFTs. MRCP was negative for choledocholithiasis. Laparoscopic cholecystectomy was indicated. The risks and benefits of procedure were explained and documented. Procedure: Patient was wheeled into the operative room and placed on the OR table in a supine position. Abdomen was inspected prepped and draped in usual sterile fashion. Time-out was performed and all present were in agreement. A 15 blade scalp was used to make a stab incision in the left upper quadrant and intra- abdominal insufflation was achieved using a Veress needle. After localizing the tissue incisions were made and a 5 millimeter trocar was placed into the umbilicus as well as 2 in the right upper quadrant. A 12 millimeter trocar was placed in the epigastrium. Gallbladder was grasped and elevated. The triangle of Calot was carefully dissected using blunt dissection and electrocautery until the triangle of [place] clearly identified. The cystic duct was clipped proximally and double clipped distally. The duct was then ligated proximally. The cystic artery was doubly clipped and ligated. The gallbladder was then removed from the liver bed using electrocautery. The gallbladder was removed from the abdomen using an Endo-Catch bag through the epigastric incision. The liver bed was inspected and no bleeding was seen. The abdomen was irrigated and suctioned. All ports removed. Skin was washed and dried. Incisions were closed with 3-0 and 4-O Vicryl in a subcuticular interrupted fashion. Skin glue was applied. Patient tolerated the procedure well.
--- NOTE | 2022-01-13 10:40 | P.PN_ITS ---
Vitals/I&O/Wt Last Vital Signs Temp 98.1 F 01/13/22 10:35 Pulse 56 L 01/13/22 10:35 Resp 12 01/13/22 10:35 BP 114/75 01/13/22 10:35 Pulse Ox 96 01/13/22 10:35 O2 Del Method 01/13/22 10:35 O2 Flow Rate 8 01/13/22 09:40 01/12/22 01/13/22 01/13/22 22:59 06:59 14:59 Intake Total 1240 / 1650 120 / 1770 1000 / 1000 Output Total Balance 1240 / 1650 120 / 1770 980 / 980 Weight last 48 hrs Weight 194 lb Weight 194 lb Data : 01/13/22 05:21 01/13/22 05:21 Micro: Microbiology 01/11/22 21:18 Urine Culture - Final Urine,Clean Catch 01/12/22 06:36 Blood Culture - Preliminary Blood NEGATIVE TO DATE 01/12/22 06:43 Blood Culture - Preliminary Blood NEGATIVE TO DATE A&P Assessment and plan (1) Acute cholecystitis: Status: Acute Plan Patient underwent laparoscopic cholecystectomy today. Surgery was uneventful with minimal blood loss. She is surgically cleared for discharge home today as long as she is tolerating a diet. Hydrocodone and follow-up in discharge Attestations Medical Necessity Statement*: Further hospitalization per hospitalist Coding Level of Care Code Acute Family Resource Coordinator for Shaye Patterson Diagnoses Acute cholecystitis K81.0
[2022-01-13] MEDS: HYDROcodone-acetaminophen 7.5-325 mg Tablet 1 TAB PO (10:44)
[2022-01-13] MEDS: pantoprazole DR 40 mg Tablet PO (10:44)
[2022-01-13] MEDS: sertraline 100 mg Tablet PO (10:45)
[2022-01-13] MEDS: sodium chloride 0.9% 1,000 ML 75 ML IV (10:45)
[2022-01-13] MEDS: cefTRIAXone 1,000 MG in sodium chloride 0.9% (plus) 50 ML 100 MG IV (10:45)
--- NOTE | 2022-01-13 12:09 | ANE.PACU2 ---
Inpatient post-anesthesia follow up: Airway intact: Yes Vital signs: Temperature 98.5 F Pulse Rate 74 Respiratory Rate 14 Blood Pressure 116/75 Pulse Oximetry 97 Oxygen Delivery Me thod Room Air Oxygen Flow Rate 8 Fraction of Inspir ed Oxygen Hydration adequate: Yes Nausea and vomiting: No Pain level: 6 Mental status: Baseline
--- NOTE | 2022-01-13 13:06 | P.DS_ITS ---
Discharge Providers Date of Admission: 01/12/22 02:52 Date of Discharge: January 13, 2022 Attending Provider at Admission: Jose Meehan MD Attending Provider at Discharge: Gene Jeffries MD Primary Care Provider: SARAH Harrison Diagnoses at Discharge Discharge Diagnosis (1) Acute cholecystitis: Status: Acute Reason for Visit Reason for Visit: ABD Pain Hospital Course Hospital Course 21-year-old female , presented with worsening of right upper quadrant pain she was diagnosed with acute cholecystitis. General surgery was consulted, status post laparoscopic cholecystectomy 01/[address] Santana. Minimal blood loss. Patient remained afebrile, no signs of sepsis or bacteremia. She is nursing, oxycodone is considered safe in nursing mother along Augmentin. Reglan is also considered safe. For worsening of pain she can take hydrocodone but not to exceed more than 30 mg in a day and acetaminophen more than 4 g a day. Cultures negative to date Physical Exam Narrative: Patient is awake and alert Nonfocal neuro exam Blood pressure is stable Afebrile Abdomen is sore Awake and alert Nonfocal neuro exam Saturating well on room air Discharge Data Studies Completed and Pending Completed Studies During Hospitalization Category Date Time Status MR MRCP 70912 Stat MRI 01/12/22 23:00 Completed US gall bladder 66209 Stat Ultrasound 01/11/22 20:35 Completed Pending at discharge Category Date Time Status Blood Culture Routine Lab 01/12/22 06:36 Results Complete Blood Count w/Auto AM LABS Lab 01/14/22 04:00 Ordered Complete Blood Count w/Auto AM LABS Lab 01/15/22 04:00 Ordered Comprehensive Metabolic Panel AM LABS Lab 01/14/22 04:00 Ordered Comprehensive Metabolic Panel AM LABS Lab 01/15/22 04:00 Ordered Magnesium AM LABS Lab 01/14/22 04:00 Ordered Magnesium AM LABS Lab 01/15/22 04:00 Ordered Phosphorus AM LABS Lab 01/14/22 04:00 Ordered Phosphorus AM LABS Lab 01/15/22 04:00 Ordered Pathology: Surgical [PTH] Routine Pth 01/13/22 09:34 Ordered Radiology Impressions Gallbladder Ultrasound 01/11/22 20:35 IMPRESSION: Small gallstones and sludge at the gallbladder neck. Sonographic findings are equivocal for acute cholecystitis. Correlate with clinical presentation and if clinically warranted can be further evaluated with nuclear medicine HIDA scan. Laboratory Results WBC 7.6 10^3/uL (4.0-10.0) 01/13/22 05:21 RBC 4.16 10^6/uL (4.1-5.3) 01/13/22 05:21 Hgb 12.6 g/dL (11.5-15.3) 01/13/22 05:21 Hct 39.4 % (37.0-47.0) 01/13/22 05:21 MCV 94.7 fl (81-99) 01/13/22 05:21 MCH 30.3 pg (28.0-34.0) 01/13/22 05:21 MCHC 32.0 g/dL (30.0-36.0) 01/13/22 05:21 RDW 12.4 % (12.1-15.1) 01/13/22 05:21 Plt Count 303 10^3/cmm (130-400) 01/13/22 05:21 Plt Count 303 10^3/cmm (130-400) 01/13/22 05:21 MPV 9.0 fL (7.4-10.4) 01/13/22 05:21 Neut % (Auto) 58.8 % 01/13/22 05:21 Lymph % (Auto) 33.0 % 01/13/22 05:21 [place] % (Auto) 4.7 % 01/13/22 05:21 Eos % (Auto) 2.4 % 01/13/22 05:21 Baso % (Auto) 0.8 % 01/13/22 05:21 Neut # (Auto) 4.48 10^3/uL (1.8-7.7) 01/13/22 05:21 Lymph # (Auto) 2.5 10^3/uL (0.8-4.8) 01/13/22 05:21 [place] # (Auto) 0.4 10^3/uL (0.2-0.9) 01/13/22 05:21 Eos # (Auto) 0.2 10^3/uL (0.0-0.8) 01/13/22 05:21 Baso # (Auto) 0.1 10^3/uL (0.0-0.1) 01/13/22 05:21 Nucleated RBC % (auto) 0 % 01/13/22 05:21 Nucleated RBCs # 0.0 /100WBC 01/13/22 05:21 PT 12.20 SECONDS (12.1-14.9) 01/13/22 05:21 INR 0.88 (0.8-1.2) 01/13/22 05:21 APTT 26.0 SECONDS (23.9-36.7) 01/13/22 05:21 Fibrinogen 353 mg/dL (174-498) 01/13/22 05:21 Sodium 140 mmol/L (136-145) 01/13/22 05:21 Potassium 3.9 mmol/L (3.5-5.1) 01/13/22 05:21 Chloride 106 mmol/L (98-107) 01/13/22 05:21 Carbon Dioxide 23 mmol/L (22-29) 01/13/22 05:21 Anion Gap 14.9 (5-19) 01/13/22 05:21 BUN 10 mg/dL (6-20) 01/13/22 05:21 Creatinine 0.7 mg/dL (0.5-0.9) 01/13/22 05:21 GFR Calculation 103.7 mL/min (90-130) 01/13/22 05:21 Glucose 93 mg/dL (65-115) 01/13/22 05:21 Calculated Osmolality 289 mOsm/kg (285-295) 01/13/22 05:21 Calcium 8.6 mg/dL (8.5-10.5) 01/13/22 05:21 Phosphorus 4.2 mg/dL (2.5-4.5) 01/13/22 05:21 Magnesium 2.0 mg/dL (1.7-2.3) 01/13/22 05:21 Total Bilirubin 0.6 mg/dL (0.15-1.2) 01/13/22 05:21 Direct Bilirubin 1.40 mg/dL (0.00-0.30) H 01/11/22 20:23 Indirect Bilirubin 0.20 01/11/22 20:23 GGT 507 U/L (5-36) H 01/11/22 20:23 AST 324 U/L (0-32) H 01/13/22 05:21 ALT 667 U/L (0-33) H 01/13/22 05:21 Alkaline Phosphatase 678 U/L (35-105) H 01/13/22 05:21 C-Reactive Protein 12.8 mg/L (0.0-4.9) H 01/11/22 20:23 Total Protein 6.1 g/dL (6.6-8.7) L 01/13/22 05:21 Albumin 3.7 g/dL (3.5-5.2) 01/13/22 05:21 Globulin 2.4 g/dL (1.3-4.6) 01/13/22 05:21 Lipase 52 U/L (13-60) 01/11/22 20:23 Procalcitonin 0.34 ng/mL (0-0.5) 01/11/22 20: TSH 1.37 uIU/mL (0.27-4.20) 01/11/22 20:32 HCG, Qual Negative (Negative) 01/11/22 20:23 Urine Color Dark yellow (Yellow) 01/11/22 21:18 Urine Appearance Clear (CLEAR) 01/11/22 21:18 Urine pH 5 (5-7) 01/11/22 21:18 Ur Specific [place] 1.015 (1.005-1.030) 01/11/22 21:18 Urine Protein Trace (Negative) 01/11/22 21:18 Urine Glucose (UA) Norm (Normal) 01/11/22 21:18 Urine Ketones Negative (Negative) 01/11/22 21:18 Urine Blood 3+ (Negative) H 01/11/22 21:18 Urine Nitrate Negative (Negative) 01/11/22 21:18 Urine Bilirubin 2+ (Negative) H 01/11/22 21:18 Urine Urobilinogen Neg mg/dL (Negative) 01/11/22 21:18 Ur Leukocyte Esterase 2+ (Negative) H 01/11/22 21:18 Urine RBC 15-25 /hpf (0-2) H 01/11/22 21:18 Urine WBC 15-25 /hpf (0-5) H 01/11/22 21:18 Ur Squamous Epith Cells 5-10 /hpf (0-5) H 01/11/22 21:18 Amorphous Sediment Not Reportable 01/11/22 21:18 Urine Bacteria Trace /hpf (NONE) 08/20/22 21:18 Urine Mucus 1+ /hpf 01/11/22 21:18 Acetaminophen < 5.0 ug/mL (10-30) L 01/11/22 20:23 Hepatitis A IgM Ab Non-reactive (Nonreactive) 01/11/22 20:23 Hep Bs Antigen Non-reactive (Nonreactive) 01/11/22 20:23 Hep B Core IgM Ab Non-reactive (Nonreactive) 01/11/22 20:23 Hepatitis C Antibody Non-reactive (Nonreactive) 01/11/22 20:23 Vitals Last Vital Signs Temp 98.0 F 01/13/22 13:03 Pulse 59 L 01/13/22 13:03 Resp 14 01/13/22 13:03 BP 110/70 01/13/22 13:03 Pulse Ox 98 01/13/22 13:03 O2 Del Method 01/13/22 13:03 O2 Flow Rate 8 01/13/22 09:40 Discharge Plan Discharge Patient Disposition: Home Condition: Stable Prescriptions: New hydrocodone-acetaminophen 7.5-325 mg tablet 1 tab PO Q6H PRN (Reason: pain) Qty: 20 0RF oxycodone-acetaminophen 10-325 mg tablet 1 tab PO Q8H PRN (Reason: pain) Qty: 20 0RF lactulose [Enulose] 10 gram/15 mL solution 10 g PO BID PRN (Reason: constipation) Qty: 946 0RF metoclopramide HCl [Reglan] 5 mg tablet 5 mg PO DAILY PRN (Reason: nausea and vomiting) Qty: 20 0RF sennosides-docusate sodium [Senna-S] 8.6-50 mg tablet 1 tab-cap PO DAILY PRN (Reason: constipation) Qty: 30 0RF amoxicillin-pot clavulanate 875-125 mg tablet 1 tab PO BID Qty: 6 0RF Continued sertraline 100 mg tablet 100 mg PO DAILY 30 Days Qty: 30 5RF docusate sodium 100 mg Capsule 100 mg PO BID multivitamin with iron Tablet 1 tab PO DAILY Discharge Orders: Discharge Order (Routine); Ordered 01/13/22 Ordered By: Gene Jeffries Referrals: Jona Santana DO [Physician] - 2 weeks Stephanie Beckett, MARINE TECHNICIAN-C [Primary Care Provider] - 7-10 days Patient Instructions: Opioid Safety, Post Anesthesia Care Activity Restrictions/Additional Instructions: For mild to moderate pain oxycodone is considered safe in breast-feeding mother If pain is really out of control please do not exceed more than 30 mg of hydrocodone in 1 day and 4 g of acetaminophen in 1 day For your nausea Reglan is considered safe for breast-feeding mother Augmentin is also considered safe in the nursing mother Discharge Attestations Time Spent in Discharge Care*: less than 30 min Quality Metrics Clinical Quality Measures [ No reported AMI, CVA or VTE this stay] Coding Level of Care Code Acute Chg FW DC note Diagnoses Acute cholecystitis K81.0
--- NOTE | 2022-01-13 14:26 | PC.NURSE ---
Discharge Note Patient discharged to home via w/c accompanied by spouse. Discharge instructions reviewed with patient and/or retail account representative. Mobile pharmacy medications and/or prescriptions provided. Belongings/home medications returned.
== END 2022-01-13 14:26 | disposition home or self-care (01) ==
LOC: ER 01-12 04:38 → MEDSURG 01-12 09:53
PROVIDERS: Physician Assistant; Surgery; Admitting Provider Family Medicine; Emergency Provider Emergency Medicine; PCP Nurse Practitioner; Visit Provider Internal Medicine
PROC: 0FT44ZZ Resection of Gallbladder, Percutaneous Endoscopic Approach (ICD-10-PCS; CPT 47562; principal; 2022-01-13 08:30)
DX: K80.10 Calculus of gallbladder with chronic cholecystitis without obstruction (principal); E66.9 Obesity, unspecified; Z68.36 Body mass index [BMI] 36.0-36.9, adult; R74.01 Elevation of levels of liver transaminase levels
CPT/HCPCS: 47562; 36415; 74181; 76705; 80053; 80074; 80307; 81001; 82247; 82248; 82977; 83690; 83735; 84100; 84145; 84443; 84703; 85025; 85049; 85384; 85610; 85730; 86140; 87040; 87086; 88304; 94664; 96365; 96367; 99285; G0378; J0696; J1100; J2405; J2543; J2704; J2710; J3010; J3490; J7030

== ENCOUNTER → 2022-01-20 14:45 | Outpatient (BNVA) | payer BC, MEDICAID, SELFPAY | PROVIDERS: PCP Nurse Practitioner; Visit Provider Nurse Practitioner Family | DX: R79.89 Other specified abnormal findings of blood chemistry (principal); Z90.49 Acquired absence of other specified parts of digestive tract; T81.49XA Infection following a procedure, other surgical site, initial encounter; Y83.8 Other surgical procedures as the cause of abnormal reaction of the patient, or of later complication, without mention of misadventure at the time of the procedure | CPT/HCPCS: 80053 ==

== ENCOUNTER → 2022-07-22 15:30 | Outpatient (BNVA) | payer BC, MEDICAID, SELFPAY | PROVIDERS: PCP Nurse Practitioner; Visit Provider Nurse Practitioner | DX: E04.9 Nontoxic goiter, unspecified (principal) | CPT/HCPCS: 80053; 80061; 84439; 84443; 84481; 86800 ==

== ENCOUNTER 2022-08-05 11:05 | Outpatient (CLI) | payer BC, MEDICAID, SELFPAY ==
--- NOTE | 2022-08-05 11:15 | US_ITS ---
WS: [id number] THYROID ULTRASOUND HISTORY: E04.9 - Nontoxic goiter, unspecified COMPARISON: None available. Right lobe: 2.0 cm x 1.6 cm x 5.0 cm (w x ap x l). Volume: 8.2 cm3. Normal size and echotexture. No significant are dominant nodules are present. Left lobe: 1.6 cm x 1.2 cm x 4.8 cm (w x ap x l). Volume: 4.9 cm3. Normal size and echotexture. No significant or dominant nodules are present. Isthmus: 0.3 cm. US/US thyroid 94312 IMPRESSION: Normal thyroid ultrasound.
== END 2022-08-05 11:06 | disposition home or self-care (01) ==
LOC: RAD 11:12
PROVIDERS: PCP Nurse Practitioner; Visit Provider Nurse Practitioner
DX: E04.9 Nontoxic goiter, unspecified (principal)
CPT/HCPCS: 76536

== ENCOUNTER 2025-04-22 01:12 | Emergency (ER) | payer MEDICAID, SELFPAY ==
--- OUTSIDE RECORDS SUMMARY | 2024-01-26 01:20 | XMS_ITS ---
Author Organization [facility] Address [address] [place] [address] Care Team Providers Care Construction Code Administrator Name Role Phone Yolande Krishnamurthy Primary Care Provider REASON FOR VISIT 6 wk f/u weight management Encounters Encounter Location Date Provider Diagnosis [facility] [address] [place] [phone] 01/26/2024 Yolande Krishnamurthy Plan Of Treatment No Information Progress Notes * Pita MÉNDEZ SDOB: [birth year] (24 yo F)Acc No.[id number]:01/26/2024 Progress Notes Patient: Lucie hernandez Pita Lucie Provider: Arie Krishnamurthy APRN :2000 A ge:23 Y S ex:Female Date:01/26/2024 Address:[address] [place], [place] [phone] Subjective: * Chief Complaints: * 6 wk f/u weight management Billing Information: * Procedure Codes: Care Plan Details* * Electronic signature of Bridget Krishnamurthy APN on 04/22/2025 at 01:20 AM CARE GIVER Sign off status: Pending * Provider: Arie Krishnamurthy APRN Date: 0 01/26/2024 Generated for Cayden saba/Dustin/eTransmitting on: 06/22/2024 01:20 AM CARE GIVER
--- OUTSIDE RECORDS SUMMARY | 2024-03-15 03:30 | XMS_ITS ---
Author Organization [facility] Address [address] [place] [address] Care Team Providers Care Retail Route Supervisor Name Role Phone Yolande Krishnamurthy Primary Care Provider Alfredo Castanon [phone] Encounters Encounter Location Date Provider Diagnosis [facility] [address] [place] [phone] 03/15/2024 Alfredo Castanon Plan Of Treatment No Information Progress Notes * Pita MÉNDEZ SDOB: [birth year] (24 yo F)Acc No.[id number]:03/15/2024 Patient: Pita Dumont Provider: Karis Castanon MD :2000 A ge:23 Y S ex:Female Date:03/15/2024 Address:[address] [place], [place] [phone] Pcp:Yolande Krishnamurthy Check In:08:30 AM CSTCheck O ut:09:00 AM PROCUREMENT PROFESSIONAL LOGISTICS Billing Information: * Procedure Codes: * Electronic signature of Dusty Castanon MD on 04/22/2025 at 01:20 AM PROCUREMENT PROFESSIONAL LOGISTICS Sign off status: Pending * Provider: Karis Castanon MD Date: Generated for Printi ng/Faxing/eTransmitting on: 06/22/2024 01:20 AM PROCUREMENT PROFESSIONAL LOGISTICS
--- OUTSIDE RECORDS SUMMARY | 2024-06-21 02:00 | XMS_ITS ---
Author Organization [facility] Address [address] [place] [address] Care Team Providers Care Fountain Vending Mechanic Name Role Phone Yolande Krishnamurthy Primary Care Provider REASON FOR VISIT discuss possible MRI Encounters Encounter Location Date Provider Diagnosis [facility] [address] [place] [phone] 06/21/2024 Yolande Krishnamurthy Plan Of Treatment No Information Progress Notes * Pita MÉNDEZ SDOB: [birth year] (24 yo F)Acc No.[id number]:06/21/2024 Progress Notes Patient: Lucie hernandez Pita Lucie Provider: Arie Krishnamurthy APRN :2000 A ge:23 Y S ex:Female Date:06/21/2024 Address:[address] [place], [place] [phone] Subjective: * Chief Complaints: * d iscuss possible MRI Billing Information: * Procedure Codes: Care Plan Details* * Electronic signature of Bridget Krishnamurthy APN on 04/22/2025 at 01:21 AM STOCK HANDLER Sign off status: Pending * Provider: Arie Krishnamurthy APRN Date: 06/21/2024 Generated for Cayden saba/Dustin/eTransmitting on: 06/22/2024 01:21 AM STOCK HANDLER
--- OUTSIDE RECORDS SUMMARY | 2025-04-22 01:21 | XMS_ITS | Patient Health Record ---
Author Organization [facility] Address [address] [place] [address] Care Team Providers Care Theatrical Agent Name Role Phone None, None Primary Care Provider MAC Rodriguez Unavailable Unavailable Allergies No Known Allergies Reason For Referral No Information Medications Medication SIG (Take, Route, Frequency, Duration) Notes Start Date End Date Status Pre-Renay Active Vitamin D Active Ashwagandha Active Lexapro 10 MG 1 tablet Orally Once a day Active Plan Of Treatment Pending Test Test Name Order Date TESTOSTERONE, FREE, BIOAVAILABLE AND TOT [place], MS (67449) 05/26/2022 TESTOSTERONE, FREE (DIALYSIS ), TOTAL (MS) AND SEX HORMONE BINDING GLOBULIN (42644) 05/26/2022 ESTRADIOL (4021) 05/26/2022 PROGESTERONE (745) 05/26/2022 PROLACTIN (746) 05/26/2022 TSH (899) 05/26/2022 ANTI-MULLERIAN HORMONE ([facility]), FEMALE (37 227) 05/26/2022 Insurance Providers Payer Name Payer Address Payer Phone Subscriber Number Group Number Insured Name Patient Relationship to Insured Coverage Start Date Coverage End Date [place] [address] [place] [address] [id number] Pita Méndez Self - patient is the insured Medical (General) History Medical History History ICD Code depression anxiety Surgical History Surgery Date(Month/Year) gallbladder 12/2021
--- OUTSIDE RECORDS SUMMARY | 2025-04-22 01:21 | XMS_ITS | Patient Health Record ---
Author Organization [facility] Address [address] [place] [address] Care Team Providers Care Political Science Research Assistant Name Role Phone Yolande Krishnamurthy Primary Care Provider [phone] Mila Rockwell Unavailable [phone] Allergies No Known Allergies Reason For Referral Reason orthostatic Hypotens ion Diagnosis 1 Orthostatic hypotens ion (I95.1) Referral Organization [facility] Referring Provider First Name Mila Referring Provider Last Name Luli Referring Provider Speciality Nurse Prac justus Referred Provider Zheng Wesley Referred Provider Specialty Cardiac Elec trophysiology Referral Priority Routine Medications Medication SIG (Take, Route, Frequency, Duration) Notes Start Date End Date Status Fluticasone Propionate 50 MCG/ACT Suspension 2 spray in each nostril Nasally Once a day; Duration: 30 days 03/24/2024 Active Vyvanse 60 MG Capsule 1 tablet in the morning Orally as needed Not-Taking Nurtec 75 MG Tablet Disintegrating 1 tablet on the tongue and allow to dissolve Orally 06/30/2024 Active clomiPRAMINE HCl 50 MG Capsule Oral; Duration: 30 Days Active Famotidine 40 MG Tablet 1 tablet Orally Once a day; Duration: 30 days Active traZODone HCl 50 MG Tablet Oral; Duratio n: 30 Days Active Wegovy 2.4 MG/0.75ML Solution Auto-injector inject 2.4mg weekly; Duration: 30 days Active fluvoxaMINE Maleate 50 MG Tablet 1 tablet at bedtime Orally Once a day Not-Taking Naltrexone HCl 50 MG Tablet 1 tablet Orally Once a day Not-Taking LORazepam 0.5 MG Tablet 1/2 tab Orally O nce a day as needed Active Ondansetron 8 MG Tablet Disintegrating 1 tablet on the tongue and allow to dissolve as needed Orally every 6 hours as needed 03/31/2024 Active Immunizations Vaccine Route Administration Date Status Comme nts Flucelvax Trivalent, Syringe 0.5 mL, PF Unknown 024 Refused Social History Tobacco Use: Social History Observation Description Date Details (start date - stop date) Never Smoker NA - NA Social History Depression Screening Social Info Question Answer Notes PHQ-9 Little interest or pleasure in doing thin gs Not at all Feeling down, depressed, or hopeless Not at all Trouble falling or staying asleep, or sleeping t oo much Not at all Feeling tired or having little energy Not at all Poor appetite or overeating Not at all Feeling bad about yourself, or that you are a failure, or have let yourself or your family down Not at all Trouble concentrating on thi ngs, such as reading the newspaper or watching television Not at all Moving or speaking so slowly that other people could have noticed. Or the opposite ? being so fidgety or restless that you have been moving around a lot more than usual Not at all Thoughts that you would be b danyell off , or of hurting yourself in some way Not at all Total Score 0 Drugs/Alcohol: Social Info Question Answer Notes Alcohol Screen (Audit-C) Did you have a drink containing alcohol in the past year? Yes How often did you have a drink containing alcohol in the past year? Monthly or less (1 point) How many drinks did you have on a typical day when you were drinking in the past year? 1 or 2 drinks (0 point) How often did you have 6 or more drinks on one occasion in the past year? Never (0 point) Points 1 Interpretation Negative Drugs Have you used drugs other than those for medical reasons in the past 12 months? No Tobacco Use: Social Info Question Answer Notes xTobacco Use/Smoking Are you a nonsmoker Section Notes: 07-29-22 PHQ9 11/03/23 PHQ9 07-29-22 PHQ9 11/03/23 PHQ9 07-29-22 PHQ9 07-29-22 PHQ9 07-29-22 PHQ9 07-29-22 PHQ9 07-29-22 PHQ9 07-29-22 PHQ9 07-29-22 PHQ9 3- PHQ9 11/03/23 PHQ9 3-- PHQ9 11/03/23 PHQ9 3- PHQ9 11/03/23 PHQ9 3-- PHQ9 11/03/23 PHQ9 3-- PHQ9 11/03/23 PHQ9 07-29- PHQ9 11/03/23 PHQ9 Problems Problem Type SNOMED Code ICD Code Onset Dates Problem Status W/U Status Risk Notes Problem Information temporarily unavailable Obesity, unspecified (E66.9) Active confirmed Problem Information temporarily unavailable Encounter for supervision of normal , unspecified, second trimester (Z34.92) Active confirmed Problem Information temporarily unavailable Anxiety (F41.9) Active confirmed Problem Information temporarily unavailable Obesity (BMI 30-39.9) (E66.9) Active confirmed Problem Information temporarily unavailable Obesity (BMI 30.0-34.9) (E66.9) Active confirmed Problem Information temporarily unavailable History of miscarriage (Z87.59) Active confirmed Problem Information temporarily unavailable Seasonal allergies (J30.2) Active confirmed Problem Information temporarily unavailable Morbid obesity (E66.01) Active confirmed Problem Information temporarily unavailable GERD (gastroesophage al reflux disease) (K21.9) Active confirmed Problem Information temporarily unavailable Intractable episodic cluster headache (G44.011) Active confirmed Problem Information temporarily unavailable Encounter for supervision of normal in third trimester, unspecified (Z34.93) Active confirmed Problem Information temporarily unavailable Body mass index [BMI] 34.0-34.9, adult (Z68.34) Active confirmed Problem Information temporarily unavailable Body mass index [BMI] 35.0-35.9, adult (Z68.35) Active confirmed Problem Information temporarily unavailable Body mass index [BMI] 36.0-36.9, adult (Z68.36) Active confirmed Vital Signs Heart Rate 85 /min 06/30/2024 Temperature 97.1 degrees Fahrenheit 06/30/2024 Respiratory Rate 20 /min 06/30/2024 Oximetry 99 % 06/30/2024 Height-cm 157.48 cm 06/30/2024 Blood pressure diastolic 72 mm Hg 06/30/2024 Weight-kg 77.57 kg 06/30/2024 Height 62 in 06/30/2024 Blood pressure systolic 118 mm Hg 06/30/2024 Weight 171 lbs 06/30/2024 BMI 31.27 kg/m2 06/30/2024 Encounters Encounter Location Date Provider Diagnosis [facility] [address] [place] [address] 04/28/2024 Yolande Krishnamurthy Encounter for weight management Z76.89 ; Obesity (BMI 30.0-34.9) E66.9 ; GERD (gastroesophageal reflux disease) K21.9 ; Nausea R11.0 and High risk medication use Z79.899 Counts Include [facility] [address] [place] [address] 05/12/2024 Mila Luli Palpitations R00.2 ; Orthostatic hypotension I95.1 ; Anxiety F41.9 ; Morbid obesity E66.01 ; Abnormal EKG R94.31 ; Dizziness R42 and Encounter for weight management Z76.89 [facility] [address] [facility] [address] [place] [address] 06/30/2024 Yolande Krishnamurthy Intractable episodic cluster headache G44.011 [facility] [address] [facility] [address] [place] [address] 06/10/2024 Yolande Krishnamurthy [facility] [address] [facility] [address] [place] [address] 06/21/2024 Yolande Krishnamurthy Encounter for weight management Z76.89 [facility] [address] [facility] [address] [place] [address] 11/07/2024 Yolandeeverardo Krishnamurthy Assessments Encounter Date Diagnosis (ICD Code) Assessment Notes Treatment Notes Treatment Clinical Notes Section Notes 05/12/2024 Orthostatic hypotension (ICD-10 - I95.1) Thyroid tests with PCP were normal. Stress test and heart monitor are normal. 05/12/2024 Palpitations (ICD-10 - R00.2) Reviewed the results of the 7-day Holter monitor with the patient today. 06/21/2024 Encounter for weight management (ICD-10 - Z76.89) 04/28/2024 Obesity (BMI 30.0-34.9) (ICD-10 - E66.9) cbc, cmp, uds,lipid tsh t3 t4 hemoglobin a1c drawn for psychiatry 04/28/2024 Encounter for weight management (ICD-10 - Z76.89) cbc, cmp, uds,lipid tsh t3 t4 hemoglobin a1c drawn for psychiatry 06/30/2024 Intractable episodic cluster headache (ICD-10 - G44.011) Keep headache log, use medication as directed. Recheck in 1 month. 04/28/2024 GERD (gastroesophagea l reflux disease) (ICD-10 - K21.9) cbc, cmp, uds,lipid tsh t3 t4 hemoglobin a1c drawn for psychiatry 05/12/2024 Anxiety (ICD-10 - F41.9) 05/12/2024 Morbid obesity (ICD-10 - E66.01) Maintained on Wegovy. Vyvanse, which was originally prescribed for reported ankit eating, may be worsening her palpitations. Dr. Castanon recommended atomoxetine for her ADD instead. 04/28/2024 Nausea (ICD-10 - R11.0) cbc, cmp, uds,lipid tsh t3 t4 hemoglobin a1c drawn for psychiatry 04/28/2024 High risk medication use (ICD-10 - Z79.899) cbc, cmp, uds,lipid tsh t3 t4 hemoglobin a1c drawn for psychiatry 05/12/2024 Abnormal EKG (ICD-10 - R94.31) 05/12/2024 Dizziness (ICD-10 - R42) Associated with orthostatic hypotension. 05/12/2024 Encounter for weight management (ICD-10 - Z76.89) 04/28/2024 Other Venipuncture performed. Right arm. One attempt. Pt tolerated well, bleeding controlled with light dressing.Bianca Sow LPN cbc, cmp, uds,lipid tsh t3 t4 hemoglobin a1c drawn for psychiatry 05/12/2024 Other Obtain echo for baseline structural evaluation. Plan Of Treatment Pending Test Test Name Order Date Electrocardiogram (EKG) - 63021 02/17/20 24 Insurance Providers Payer Name Payer Address Payer Phone Subscriber Number Group Number Insured Name Patient Relationship to Insured Coverage Start Date Coverage End Date [place] [address] [facility] [place] [phone] [id number] Pita Méndez Self - patient is the insured Medical (General) History Surgical History Surgery Date(Month/Year) gallbladder removal 2021 Hospitalization History Reason Date(Month/Year) gallbladder removal childbirth and dehydration during pegnan cy
--- OUTSIDE RECORDS SUMMARY | 2025-04-22 01:21 | XMS_ITS | Data Portability ---
Author Organization [place] - Todd Mcneill [facility], [place], [facility] Address [address] [place] [phone] Assessment No assessment recorded. Plan of Treatment Reminders Order Date Submit Date Provider Last Modified By Organization Details Last Modified Time Details Appointments None recorded. Lab urinalysis , complete 2022 [address] [facility] ([facility]), [address] [place], [address], 3 13:48:29 culture, urine 2022 023 [facility], [address] [facility] , [facility] [address], [place], [address], 3 08:21:02 Referral None recorded. Procedures None recorded. Surgeries None recorded. Imaging None recorded. Medication Orders Macrobid 100 mg capsule 2022 023 [facility], [address], [place], [address], 3 12:35:54 Patient TargetsNo targets recorded. Patient InstructionsNo instructions recorded. Reason for Referral None Reported. Results Created Date Observation Date Name Description Value Unit Range Abnormal Flag Note LastModifiedBy Organization Detail LastModifiedTime 04/21/20 23 04/23/2023 CULTU RE, URINE , ROUTI NE culture, urine, routine SEE NOTE abnormal CULTU RE, URINE , ROUTI NE Micro Numbe r: [id number] Test Statu s: Final Speci men Sourc e: Urine Speci men Quali ty: Adequ ate Resul t: 10,00 0-49, 000 CFU/m L of [place] a coli COMME NT: Addit ional non-p redom inati ng organ ism(s ) isola messi. These organ isms, commo nly found on exter nal and inter nal genit balbir, are consi dered colon izers . No furth er testi ng perfo rmed. E.col i ----- ----- ----- - INT IHSAN AMOX/ CLAVU LANAT E S 8 AMP/S ULBAC MUÑOZ I 16 CEFAZ JEAN PAUL NR <=4 2 CEFEP MIRIAN S <=0.1 2 CEFTA ZIDIM E S <=1 CEFTR IAXON E S <=0.2 5 CIPRO FLOXA JOSEFINA R 1 GENTA MICIN S <=1 IMIPE NEM S <=0.2 5 LEVOF LOXAC IN I 1 MEROP ENEM S <=0.2 5 NITRO FURAN TOIN S <=16 PIP/T AZOBA CTAM S <=4 TRIME THOPR IM/ROGERS LFA R >=320 S=Rita cepti ble I=Int ermed iate R=Res istan t * = Not Teste d NR = Not Repor messi NN = See Thera py Comme nts THERA PY COMME NTS Note 1: For infec tions other than uncom plica messi UTI cause d by E. coli, K. pneum oniae or P. mirab ilis: Cefaz jean paul is resis tant if IHSAN > or = 8 mcg/m L. (Dist ingui shing susce ptibl e versu s inter media te for isola evert with IHSAN < or = 4 mcg/m L requi res addit ional testi ng.) Note 2: For uncom plica messi UTI cause d by E. coli, K. pneum oniae or P. mirab ilis: Cefaz jean paul is susce ptibl e if IHSAN <32 mcg/m L and predi cts susce ptibl e to the oral agent s cefac marquita, cefdi seymour, cefpo doxim e, cefpr ozil, cefur oxime , cepha lexin and lorac arbef . Not Available [employer] ([employer] [facility] [address] [place], [address], 04/23/2023 16:01:35 04/21/2004/21/2023 urina lysis , compl ete color yellow Not Available [facility] ([facility]) [address] [place], [address], 04/21/2023 11:13:41 04/21/2004/21/2023 urina lysis , compl ete clarity clear clear Not Available [facility] ([facility]) [address] [place], [address], 04/21/2023 11:13:41 04/21/2004/21/2023 urina lysis , compl ete glucose negati ve negati ve Not Available [facility] ([facility]) [address] [place] [address], [phone], 04/21/2023 11:13:41 04/21/2004/21/2023 urina lysis , compl ete bilirubin negati ve negati ve Not Available [facility] ([facility]) [address] [place] [address], [phone], 04/21/2023 11:13:41 04/21/2004/21/2023 urina lysis , compl ete ketones negati ve negati ve Not Available [facility] ([facility]) [address] [place] [address], [phone], 04/21/2023 11:13:41 04/21/2004/21/2023 urina lysis , compl ete specific gravity 1.030 1.005- 1.025 abnormal Not Available [facility] ([facility]) [address] [place] [address], [phone], 04/21/2023 11:13:41 04/21/20 23 04/21/2023 urina lysis , compl ete pH 6.0 5.0-7. 0 Not Available [facility] ([facility]) [address] [place], [address], 04/21/2023 11:13:41 04/21/2004/21/2023 urina lysis , compl ete protein negati ve Not Available [facility] ([facility]) [address] [place], [address], 04/21/2023 11:13:41 04/21/2004/21/2023 urina lysis , compl ete uro 0.2 Not Available [facility] ([facility]) [address] [place], [address], 04/21/2023 11:13:41 04/21/2004/21/2023 urina lysis , compl ete nitrate negati ve negati ve Not Available [facility] ([facility]) [address] [place], [address], 04/21/2023 11:13:41 04/21/2004/21/2023 urina lysis , compl ete blood 3+ negati ve abnormal Not Available [facility] ([facility]) [address] [place], [address], 04/21/2023 11:13:41 04/21/2004/21/2023 urina lysis , compl ete leukocytes trace negati ve abnormal Not Available [facility] ([facility]) [address] [place], [address], 04/21/2023 11:13:41 04/21/2004/21/2023 urina lysis , compl ete WBC 30-40 0 abnormal Not Available [facility] ([facility]) [address] [place], [address], 04/21/2023 11:13:41 04/21/20 23 04/21/2023 urina lysis , compl ete RBC 15-20 0 abnormal Not Available [facility] ([facility]) [address] [place], [address], 04/21/2023 11:13:41 04/21/20 23 04/21/2023 urina lysis , compl ete epi cells 4-6 0 abnormal Not Available [facility] [address] [place], [address], 04/21/2023 11:13:41 04/21/2004/21/2023 urina lysis , compl ete bacteria 1+ of mixed lewis abnormal Not Available [facility] ([facility]) [address] [place], [address], 04/21/2023 11:13:41 04/21/20 23 04/21/2023 urina lysis , compl ete other negati ve Not Available [facility] [address] [place], [address], 04/21/2023 11:13:41 Result Notes None recorded. Medical Equipment None Reported. Allergies Allergen ID Allergen Name Allergen Category Reaction Reaction Severity Criticality Documentation Date Start Date Code Code System Note Provider Name and Address Organization Details Recorded Time 5[address]65 animal dander environme nt other Not available Not available 12/20/2022 React ion: cat; Comme nt: Recor ded 05/07 1:02P M by Gabbi peres, SURVEYOR INSTRUMENT ASSISTANT, Offic e Visit ; Promo messi; Alissa goldberg ce: *; ; Not Available [employer] 3 02:29:51 Medications Name Sig Start Date Stop Date Status Note LastModified by Organization Details LastModified Time quetiapine 25 mg tablet TAKE ONE TABLET BY MOUTH DAILY active Not Available Not Available No t Available fluoxetine 40 mg capsule TAKE 1 CAPSULE BY MOUTH DAILY. START AFTER 1 MONTH ON 20 MG active Not Available Not Available No t Available promethazi ne-DM 6.25 mg-15 mg/5 mL oral syrup TAKE ONE TO TWO TEASPOONF ULS ( 5 TO 10 ML'S) BY MOUTH EVERY 6 HOURS NEEDED FOR COUGH active Not Available Not Available No t Available ketoconazo le 2 % shampoo active Not Available Not Available Not Available doxepin 25 mg capsule TAKE ONE CAPSULE BY MOUTH TWICE DAILY NEEDED FOR ANXIETY active Not Available Not Available No t Available methylphen idate 10 mg tablet TAKE ONE TABLET BY MOUTH DAILY AT 100PM active Not Available Not Available No t Available methylphen idate 20 mg tablet TAKE ONE TABLET BY MOUTH EVERY MORNING FOR 30 DAYS active Not Available Not Available No t Available methylphen idate 5 mg tablet TAKE ONE TABLET (5MG) BY MOUTH AT 100PM DAILY active Not Available Not Available No t Available spironolac tone 100 mg tablet TAKE ONE TABLET BY MOUTH TWICE DAILY active Not Available Not Available No t Available clonazepam 1 mg tablet TAKE 1/2 TO 1 TABLET BY MOUTH AT BEDTIME NEEDED FOR SLEEP active Not Available Not Available No t Available phentermin e 37.5 mg tablet TAKE ONE TABLET BY MOUTH ONCE DAILY BEFORE BREAKFAST active Not Available Not Available No t Available amoxicilli n 875 mg tablet TAKE ONE TABLET BY MOUTH TWICE DAILY active Not Available Not Available No t Available Zoloft 50 mg tablet three times daily active 0; Recorded 2 7:18AM by Cheikh Locke Summary; Not Available Not Available Not Available fluoxetine 20 mg tablet TAKE ONE TABLET BY MOUTH EVERY DAY AT BEDTIME active Not Available Not Available No t Available buspirone 10 mg tablet TAKE 1 TABLET BY MOUTH TWICE DAILY active Not Available Not Available No t Available fluocinolo ne 0.01 % topical solution APPLY TOPICALLY TO THE SCALP TWICE DAILY FOR ITCHING active Not Available Not Available No t Available cefdinir 300 mg capsule TAKE ONE CAPSULE BY MOUTH TWICE DAILY active Not Available Not Available No t Available fluoxetine 20 mg capsule TAKE 1 CAPSULE BY MOUTH DAILY active Not Available Not Available No t Available fluticason e propionate 50 mcg/actuat ion nasal spray,susp ension INHALE ONE SPRAY IN EACH NOSTRIL DAILY active Not Available Not Available No t Available phentermin e 37.5 mg capsule TAKE ONE CAPSULE BY MOUTH ONCE DAILY active Not Available Not Available No t Available hydroxyzin e pamoate 25 mg capsule TAKE ONE CAPSULE BY MOUTH THREE TIMES DAILY NEEDED active Not Available Not Available No t Available neomycin-p olymyxin-h ydrocort 3.5 mg-10,000 unit/mL-1 % ear drops,susp APPLY FOUR DROPS TO AFFECTED EAR THREE TIMES DAILY - SEVEN DAYS active Not Available Not Available No t Available escitalopr am 10 mg tablet TAKE 1 TABLET BY MOUTH EVERY DAY active Not Available Not Available No t Available nitrofuran toin monohydrat e/macrocry stals 100 mg capsule Take 1 capsule every 12 hours by oral route for 7 days. active Not Available Not Available No t Available Flonase daily in each nostril 2021 active Recorded 2 7:18AM by Cheikh Locke; Refill Quantity: 1; Each; Not Available Not Available Not Available Zyrtec daily active 0; Recorded 2 7:17AM by Cheikh Locke; Not Available Not Available Not Available Vitamin daily active 0; Recorded 2 7:18AM by Cheikh Locke; Not Available Not Available Not Available escitalopr am oxalate daily 2021 active Recorded 2 3:36PM by Melo Otero MD, Office Visit; Refill Quantity: 30; Tablet; Not Available Not Available Not Available fluoxetine 60 mg tablet TAKE ONE TABLET BY MOUTH DAILY active Not Available Not Available No t Available Trintellix 10 mg tablet TAKE 1/2 TABLET BY MOUTH FOR 7 DAYS, THEN TAKE ONE TABLET DAILY. TAKE WITH FOOD. active Not Available Not Available No t Available Trintellix 20 mg tablet active Not Available Not Available Not Available Vitals Date Recorded Body height Body mass index (BMI) Body weight Oxygen saturation Heart rate Respiratory rate Body temperature Systolic And Diastolic Provider Name and Address Organization Details Last Updated DateTime 3 154.94 cm 35.9 kg/m2 12348.5 5 g 97 % 74 /min 18 /min 98.4 [degF] 115/62 mm[Hg] [facility] 3 12:00:08 Social History None recorded. Functional Status None recorded. Mental Status None recorded. Family History Nothing Reported. Medical History No medical history recorded. Gynecological HistoryNo gynecological history recorded. Obstetrics History GPAL:G 0 P 0 0 0 0 Past Encounters Encounter ID Performer Location Encounter Start Date Encounter Closed Date Diagnosis/Indication Diagnosis SNOMED-CT Code Diagnosis ICD10 Code Diagnosis IMO Codes Diagnosis Note [id number] SARAH MOON [facility] ([facility]) [address] [place] [address] 04/21/2023 11:09:12 04/21/2023 18:53:48 Dysuria 18832739 R30.0 Acute urin sylvie tract infection 866339491 N39.0 Start Macrobid BID x7 days, take as prescribed . Encouraged to increase water intake and decrease caffeine and sugary drinks. If still having symptoms after completion of antibiotic s, recommend a urine re-check. Urine was sent for culture. Will call with culture results. If worsening condition or no improvemen t in 3-5 days, recommend returning for re-evaluat ion. Patient verbalized understand ing. Cluster headache 1550266 09 G44.009 Recommend scheduling an appointmen t with PCP since patient is not having HAs today. Discussed with patient that she may need to start a migraine medication , however, this needs to be initiated by and followed by a PCP. Patient is agreeable to plan of care. Health Concerns Section Related Observation LastModified by Organization Detai ls LastModified Time None Recorded Concern Status LastModified by Organization Details LastModified Time None Recorded Advance Directives Directive None Recorded Payers Insurance Date Sequence Insurance Name Policy Number Policy Barron Covered Member ID Barron Member ID Guarantor Name 04/27/2023 1 [place] [id number] Pita Méndez [id number] Pita Méndez 04/27/2023 2 [facility] [employer] DAMIÁN Méndez [id number] Pita Méndez Notes Date Note Type Note Provider Name and Address Organization Details Recorded Time 04/21/2023 text/html Lower Urinary Tr act Symptoms (LUTS)Reported by PatientHPIFor context, patient reportsabnormal voiding frequencybut reportsdenies excessive fluid intakeanddenies excessive caffeine intake. For associated symptoms, patient reportsabdominal pain,urgency,frequency ,dysuria, andvaginal discharge. For location, patient reportsbladder. For quality, patient reportsachingandpressu re. For severity, patient reportsworseningandmod erate. For onset/timing, patient reportsconstant. For duration, patient reports2-3 weeks.ROS as noted in the HPI Patient is a 22 year old female who presents to the walk in clinic today for dysuria. Patient reports urinary burning, urgency, and frequency for 1 week. Has been taking AZO OTC which is not helping. Patient started having pelvic cramping and black vaginal discharge when she wipes over the past 2 days. Patient states she is 10 days away from starting her period. Patient also reports cluster HAs that are becoming more frequent. States she has not seen her PCP for this and is not on migraine medications. Has been taking tylenol and ibuprofen which helps some. Patient also states she got her vision checked recently and her eye doctor stated her vision was not the cause of the HAs. RITIKA GAO, DIVISION SALES MANAGER-C [address] [place], [address], [facility] 04/21/2023 12:43:43 OBGyn Episode No OBEpisode recorded.
--- OUTSIDE RECORDS SUMMARY | 2025-04-22 01:21 | XMS_ITS | Clinical Summary ---
Author Organization [facility] Address [address] [place] [address] Phone Care Team Providers Care Stunt Driver Name Role Phone Unavailable Primary Care Provider Unavailabl e Allergies No known active allergies Medications lisdexamfetamin e 30 mg capsule (VYVANSE) Take 30 mg by mouth daily. Active clomiPRAMINE (ANAFRANIL) 50 mg Capsule Take 50 mg by mouth daily at bedtime. Active traZODone (DESYREL) 100 mg tablet Take 100 mg by mouth daily at bedtime. Active fluticasone propionate (FLONASE) 50 mcg/spray Ceres, Suspension nasal inhaler Administer 2 Sprays in each nostril daily. Active topiramate (TOPAMAX) 25 mg capsule Take 25 mg by mouth every 12 hours. Active Active Problems Problem Noted Date Diagnosed Date History of orthostatic hypotension 09/22/2024 Postural orthostatic tachycardia syndrome (POTS) 09/22/2024 Encounters Date Type Department Care Team Description 03/15/2025 External Device Data STL ABSTRACTION Provider, Abstract 02/21/2025 External Device Data ST[facility] ABSTRACTION Provider, Abstract 02/07/2025 External Device Data STL ABSTRACTION Provider, Abstract from Last 3 Months Family History Medical History Relation Name Comments Leaky heart valve Brother Other Daughter no problems Other Mother alive and well Heart Surgery Other Pat. uncle Heart Attack Paternal Grandfather Relation Name Status Comments Brother Daughter Mother Other Pat. uncle Paternal Grandfather Social History Tobacco Use Types Packs/Day Years Used Date Smoking Tobacco: Never Passive Smoke Exposure: Never Smokeless Tobacco: Never Tobacco Cessation:Counseling Given: No Alcohol Use Standard Drinks/Week Comments Not Currently 0 (1 standard drink = 0.6 oz pur e alcohol) Comments No Sex and Gender Information Value Date Recorded Sex Assigned at Not on file Legal Sex Female 8:15 AM CDT Gender Identity Not on file Sexual Orientation Not on file Last Filed Vital Signs Vital Sign Reading Time Taken Comments Blood Pressure 106/62 11/01/2024 9:10 AM CDT Pulse 98 11/01/2024 9:10 AM CDT Temperature - - Respiratory Rate - - Oxygen Saturation 98% 11/01/2024 9:10 AM CDT Inhaled Oxygen Concentration - - Weight 75.6 kg (166 lb 9.6 oz) 11/01/2024 9:10 A M CDT Height 157.5 cm (5' 2 ) 11/01/2024 9:10 AM CDT Body Mass Index 30.47 11/01/2024 9:10 AM CDT Plan of Treatment Upcoming Encounters Date Type Department Care Team (Late st Contact Info) Description 11/01/2025 9:00 AM CDT Office Visit [facility] [address] [address] Zheng Wesley MD [address] [address] Health Maintenance Due Date Last Done Comments HPV VACCINES (1 - 3-dose series) 2013 DTAP/TDAP/TD VACCINES (1 - Tdap) 2017 HEPATITIS B VACCINES (1 of 3 - 19+ 3-dose series) 08/2017 CERVICAL CANCER SCREENING 11/26/2019 HPV/Cotest (21-29) 11/26/2019 PAP SMEAR 11/26/2019 INFLUENZA VACCINE (#1) [address] [place] [id number] [facility] [id number] [facility]
[2025-04-22 01:37] VITALS: BP 108/68; PULSE 109; RESP 18; TEMP 36.6; O2SAT 99; BMI 29.2
[2025-04-22 01:52] LABS: Hematocrit 38.5 % (36-47); Hemoglobin 12.90 g/dL (11.27-16.99); Mean Corpuscular HGB Conc 33.5 g/dL (30-55); Mean Corpuscular Hemoglobin 30.0 pg (27-33); Mean Corpuscular Volume 89.5 fl (85-98); Nucleated Red Blood Cells % 0 %; Platelet Count 271 10^3/cmm (157-399); Red Blood Count 4.30 10^6/uL (3.85-5.65); White Blood Count 16.72 10^3/uL (3.29-11.43)
[2025-04-22 02:07] LABS: Alanine Aminotransferase 190 U/L (0-33); Albumin Level 4.1 g/dL (3.5-5.2); Alkaline Phosphatase 221 U/L (35-105); Anion Gap 15.7 (5-19); Aspartate Amino Transferase 286 U/L (0-32); Blood Urea Nitrogen 14 mg/dL (6-20); Calcium 8.9 mg/dL (8.5-10.5); Carbon Dioxide 20 mmol/L (22-29); Chloride 102 mmol/L (98-107); Globulin 2.6 g/dL (1.3-4.6); Glucose 154 mg/dL (65-115); Lipase 138 U/L (13-60); Osmolality Calculated 282 mOsm/kg (285-295); Potassium 3.7 mmol/L (3.5-5.1); Sodium 134 mmol/L (136-145); Total Protein 6.7 g/dL (6.6-8.7)
[2025-04-22 02:09] LABS: HCG, Serum Qual Negative (Negative)
[2025-04-22 02:13] LABS: Glucose Urine UA Negative (Normal); Nitrate Urine Negative (Negative)
--- NOTE | 2025-04-22 02:16 | CTR_ITS ---
PROCEDURE INFORMATION: Exam: CT Abdomen And Pelvis With Contrast Exam date and time: 04/22/2025 2:50 AM Age: 24 years old Clinical indication: Pain and abnormal findings; Abnormal lab test; Elevated liver enzymes and elevated wbc; Nausea and vomiting; Abdominal pain; Localized; Right upper quadrant (ruq); Prior surgery; Surgery date: 6+ months; Surgery type: Gastric sleeve. Gb. Iud; Ruq pain with n/v. Leukocytosis with elevated lfts. TECHNIQUE: Imaging protocol: Computed tomography of the abdomen and pelvis with contrast. Radiation optimization: All CT scans at this facility use at least one of these dose optimization techniques: automated exposure control; mA and/or kV adjustment per patient size (includes targeted exams where dose is matched to clinical indication); or iterative reconstruction. Contrast material: OMNI 350; Contrast volume: 100 ml; Contrast route: INTRAVENOUS (IV); COMPARISON: MR MRCP [id number] 01/12/2022 12:13 AM RADIATION DOSE METRICS: Total DLP (mGy-cm): 593.55 FINDINGS: Liver: Unremarkable. Gallbladder and biliary ducts: Cholecystectomy. Pancreas: Normal. No ductal dilation. Spleen: Unremarkable. Adrenal glands: Unremarkable. Kidneys and ureters: Normal. No hydronephrosis. Stomach and bowel: Postoperative changes of gastric sleeve procedure. No mechanical obstruction. No mucosal thickening. Appendix: Appendix not definitely seen. No findings suggestive of appendicitis. Intraperitoneal space: No free air. No fluid collection. Vasculature: Unremarkable. No abdominal aortic aneurysm. Lymph nodes: No enlarged lymph nodes. Urinary bladder: Unremarkable as visualized. Reproductive: IUD mildly rotated around the long axis with the arms extending anterior and posteriorly. 2 cm right ovarian cyst. Bones/joints: No acute fracture. Soft tissues: Unremarkable. CT/CT abdomen pelvis w con* [id number] IMPRESSION: 1. No acute abdominopelvic abnormality. 2. IUD mildly rotated around the long axis with the arms extending anterior and posteriorly.
[2025-04-22 02:17] LABS: Add Urine Microscopic? YES; Universal Test for UA Present (0)
[2025-04-22 02:23] LABS: Specific Gravity, Urine 1.038 (1.005-1.030)
[2025-04-22] MEDS: ondansetron 2 mg/ML SDV 2 mL 4 MG IVP (02:36)
[2025-04-22 02:41] VITALS: BP 104/68; PULSE 100; RESP 16; O2SAT 99
[2025-04-22] MEDS: iohexol 350 mg/mL 500 mL Btl (per mL) IV (02:52)
[2025-04-22 03:00] VITALS: BP 105/62; PULSE 86; RESP 16; O2SAT 100
--- NOTE | 2025-04-22 03:03 | W.ED.NAVMDI ---
HPI - Nausea/Vomiting/Diarrhea General: Chief complaint: Nausea/Vomiting/Diarrhea Stated complaint: n/v weak abd cramp pale Time Seen by Provider: 04/22/25 01:37 History of Present Illness: Patient is a 24-year-old female presenting with abdominal cramping that started approximately 1-1.5 hours prior to evaluation. She reports similar symptoms in the past when she became dehydrated. Patient has a history of Postural Orthostatic Tachycardia Syndrome (POTS) and acknowledges inadequate fluid intake recently. The cramping is primarily located in the upper abdomen. She denies fever but reports some diarrhea. Patient appears pale during examination. She denies abnormal vaginal bleeding, though reports some spotting with her copper IUD which she states is normal for her. Related Data Previous Rx's ?Medication ?Instructions ?Recorded promethazine-DM 6.25 mg-15 mg/5 mL 5 - 10 ml PO Q6H PRN cough #240 mL 09/09/22 oral syrup buspirone 10 mg tablet 10 mg PO BID #60 tabs 11/12/22 fluoxetine 20 mg capsule (Prozac) 20 mg PO DAILY #30 caps 11/12/22 fluoxetine 40 mg capsule (Prozac) 40 mg PO DAILY #30 caps 11/12/22 ondansetron 4 mg disintegrating 4 mg PO Q6H PRN nausea and 04/22/25 tablet vomiting #14 tabs Allergies Allergy/AdvReac Type Severity Reaction Status Date / Time No Known Allergies Allergy Verified 11/12/22 08:52 PFS ED PFSH: Medical History Hyperbilirubinemia Transaminitis Right upper quadrant pain Attention deficit disorder (ADD) Environmental and seasonal allergies History of 2019 novel coronavirus disease (COVID-19) Anxiety with depression No pertinent past medical history neghx: htn,dm,thyroid,dvt/pe PCP: None Surgical History Status post cholecystectomy Family History Grandmother Hypertension Maternal and Paternal Family/Other Heart disease Paternal Uncle Ovarian cancer maternal great aunt Brother Heart disease Denies family history of Colon cancer Diabetes Hypercholesteremia Breast cancer Uterine cancer Thyroid disease Social History Smoking and tobacco/nicotine status: never used tobacco/nicotine Second hand smoke exposure: No Alcohol intake: unknown Substance/Drug Use: unknown Adopted: No Caregiver/support person: No Lives independently: Yes Household members: spouse Housing: House Marital status: Number of children: 1 service: No Do you think of yourself as: Straight/Heterosexual Current gender identity: Female Physical Exam Const: COMMON NORMALS: no acute distress GENERAL APPEARANCE: cooperative; not ill appearing and not frail appearing HENMT: COMMON NORMALS: normocephalic, atraumatic and Normal external nose present HEAD & SCALP: normocephalic and atraumatic FACE & SINUS: normal facial exam and face symmetric NOSE: Normal external nose present Eye: COMMON NORMALS: Equal, round and reactive pupils present and EOMs intact bilaterally PUPIL: Yes Equal, round and reactive pupils present Neck/C-Spine: GENERAL: Yes trachea midline Chest: CHEST: Yes Symmetrical chest wall rise Resp: COMMON NORMALS: normal respiratory effort, No retractions, No use of accessory muscles and clear to auscultation bilaterally AUSCULTATION: clear to auscultation bilaterally Cardio: COMMON NORMALS: regular rate and regular rhythm RATE: regular rate RHYTHM: regular rhythm GI: COMMON NORMALS: Normal to inspection, nondistended, normoactive bowel sounds present Extremity: COMMON NORMALS: no pedal edema Neuro: ELA COMA SCALE: document GCS findings Ela coma scale eye opening: Spontaneous Ela coma scale verbal response: Orientated [place] coma scale motor response: Obey commands [place] coma scale total score: 15 SENSORY EXAM: Yes extremities (intact) Psych: COMMON NORMALS: speech normal SPEECH: Yes normal speech Skin: COMMON NORMALS: no rashes or lesions noted GENERAL SKIN EXAM: no rashes or lesions noted Course Vital Signs: Vital signs: Vital Signs Temperature 98 F 04/22/25 01:37 Pulse Rate 86 04/22/25 04:00 Respiratory Rate 16 04/22/25 03:00 Blood Pressure 98/57 04/22/25 04:00 Pulse Oximetry 96 04/22/25 04:00 Oxygen Delivery Me thod Room Air 04/22/25 04:00 MDM - Nausea/Vomiting/Diarrhea Medical Decision Making This 24-year-old female with a history of gastric sleeve surgery in december. She also has a history of cholecystectomy. She present with right upper quadrant discomfort, vomiting, some diarrhea. Her white blood cell count is 16.7. Bicarbonate level was 20. AST is elevated to 86 ALT is 190 alk phos is 221. Her CRP, however, is only 4. And bilirubin is 0.5. Urinalysis is equivocal. CT of the abdomen and pelvis shows no acute findings. She feels much improved after fluid, Toradol, Zofran here. She is stable for discharge. Return for worsening symptoms. She will get her liver enzymes rechecked in a few days. She was counseled on this. Lab Data 04/22/25 01:47 04/22/25 01:47 Radiology Impressions Abdomen/Pelvis CT 04/22/25 02:16 IMPRESSION: 1. No acute abdominopelvic abnormality. 2. IUD mildly rotated around the long axis with the arms extending anterior and posteriorly. Laboratory Results WBC 16.72 10^3/uL (3.29-11.43) H 04/22/25 01:47 RBC 4.30 10^6/uL (3.85-5.65) 04/22/25 01:47 Hgb 12.90 g/dL (11.27-16.99) 04/22/25 01:47 Hct 38.5 % (36-47) 04/22/25 01:47 MCV 89.5 fl (85-98) 04/22/25 01:47 MCH 30.0 pg (27-33) 04/22/25 01:47 MCHC 33.5 g/dL (30-55) 04/22/25 01:47 RDW 12.4 % (12.1-15.1) 04/22/25 01:47 Plt Count 271 10^3/cmm (157-399) 04/22/25 01:47 MPV 8.9 fL (7.4-10.4) 04/22/25 01:47 Neut % (Auto) 90.6 % 04/22/25 01:47 Lymph % (Auto) 4.1 % 04/22/25 01:47 [place] % (Auto) 4.5 % 04/22/25 01:47 Eos % (Auto) 0.2 % 04/22/25 01:47 Baso % (Auto) 0.2 % 04/22/25 01:47 Neut # (Auto) 15.15 10^3/uL (1.8-7.7) H 04/22/25 01:47 Lymph # (Auto) 0.7 10^3/uL (0.8-4.8) L 04/22/25 01:47 [place] # (Auto) 0.8 10^3/uL (0.2-0.9) 04/22/25 01:47 Eos # (Auto) 0.0 10^3/uL (0.0-0.8) 04/22/25 01:47 Baso # (Auto) 0.0 10^3/uL (0.0-0.1) 04/22/25 01:47 Nucleated RBC % (auto) 0 % 04/22/25 01:47 Nucleated RBCs # 0.0 /100WBC 04/22/25 01:47 Sodium 134 mmol/L (136-145) L 04/22/25 01:47 Potassium 3.7 mmol/L (3.5-5.1) 04/22/25 01:47 Chloride 102 mmol/L (98-107) 04/22/25 01:47 Carbon Dioxide 20 mmol/L (22-29) L 04/22/25 01:47 Anion Gap 15.7 (5-19) 04/22/25 01:47 BUN 14 mg/dL (6-20) 04/22/25 01:47 Creatinine 0.5 mg/dL (0.5-0.9) 04/22/25 01:47 GFR Calculation 149.1 mL/min (90-130) H 04/22/25 01:47 Glucose 154 mg/dL (65-115) H 04/22/25 01:47 Calculated Osmolality 282 mOsm/kg (285-295) L 04/22/25 01:47 Calcium 8.9 mg/dL (8.5-10.5) 04/22/25 01:47 Total Bilirubin 0.5 mg/dL (0.15-1.2) 04/22/25 01:47 AST 286 U/L (0-32) H 04/22/25 01:47 ALT 190 U/L (0-33) H 04/22/25 01:47 Alkaline Phosphatase 221 U/L (35-105) H 04/22/25 01:47 C-Reactive Protein 4.0 mg/L (0.0-4.9) 04/22/25 01:47 Total Protein 6.7 g/dL (6.6-8.7) 04/22/25 01:47 Albumin 4.1 g/dL (3.5-5.2) 04/22/25 01:47 Globulin 2.6 g/dL (1.3-4.6) 04/22/25 01:47 Lipase 138 U/L (13-60) H 04/22/25 01:47 HCG, Qual Negative (Negative) 04/22/25 01:47 Urine Color [place] (Yellow) A 04/22/25 02:06 Urine Appearance Cloudy (CLEAR) A 04/22/25 02:06 Urine pH 5.0 (5-7) 04/22/25 02:06 Ur Specific [place] 1.038 (1.005-1.030) H 04/22/25 02:06 Urine Protein 1+ (Negative) A 04/22/25 02:06 Urine Glucose (UA) Negative (Normal) 04/22/25 02:06 Urine Ketones Trace (Negative) 04/22/25 02:06 Urine Blood 1+ (Negative) A 04/22/25 02:06 Urine Nitrate Negative (Negative) 04/22/25 02:06 Urine Bilirubin 1+ (Negative) H 04/22/25 02:06 Urine Urobilinogen 1.0 mg/dL (Negative) 04/22/25 02:06 Ur Leukocyte Esterase Trace (Negative) A 04/22/25 02:06 Urine RBC 0-2 /hpf (0-2) 04/22/25 02:06 Urine WBC 6-10 /hpf (0-5) 04/22/25 02:06 Ur Squamous Epith Cells 11-20 /hpf (0-5) H 04/22/25 02:06 Amorphous Sediment Not Reportable 04/22/25 02:06 Urine Bacteria Trace /hpf (NONE) 04/22/25 02:06 Hyaline Casts 11.97 /lpf 04/22/25 02:06 Urine Mucus 4+ /hpf 04/22/25 02:06 All radiology interpretation(s) finalized by discharge Discharge Plan Discharge Patient Disposition: Home Clinical Impression: Abdominal pain, Elevated liver enzymes Condition: Stable Prescriptions: New ondansetron 4 mg tablet,disintegrating 4 mg PO Q6H PRN (Reason: nausea and vomiting) Qty: 14 0RF No Action promethazine-DM 6.25-15 mg/5 mL syrup 5 - 10 ml PO Q6H PRN (Reason: cough) Qty: 240 0RF fluoxetine [Prozac] 20 mg capsule 20 mg PO DAILY Qty: 30 0RF fluoxetine [Prozac] 40 mg capsule 40 mg PO DAILY Qty: 30 0RF Rx Instructions: Start after 1 month on 20 mg buspirone 10 mg tablet 10 mg PO BID Qty: 60 1RF Discharge Orders: Discharge ED (Routine); Ordered 04/22/25 Ordered By: Wayne Lopez Patient Instructions: Abdominal Pain (ED), Opioid Safety, Pain Management, Patient Portal & [place] Instructions Activity Restrictions/Additional Instructions: Drink plenty of clear liquids for the next 48 hours. Follow a liquid diet for the first 24 hours, then advance your diet as tolerated. You may use nausea medication prescribed as needed. Return for any worsening pain, development of fever, vomiting liquids despite the above, yellowing of the eyes, any other concerns. Your liver enzymes were mildly elevated this morning. Call your doctor on Thursday for a follow-up appointment regarding rechecking these next week. Print Language: Luxembourgish Coding Level of Care Code ED [facility] Teacher for Shaye Patterson
[2025-04-22 03:30] VITALS: BP 98/76; PULSE 79; O2SAT 100
[2025-04-22 04:00] VITALS: BP 98/57; PULSE 86; O2SAT 96
== END 2025-04-22 04:47 | disposition home or self-care (01) ==
PROVIDERS: Emergency Provider Emergency Medicine
DX: R10.9 Unspecified abdominal pain (principal); R74.01 Elevation of levels of liver transaminase levels
CPT/HCPCS: 36415; 74177; 80053; 81001; 83690; 84703; 85025; 86140; 96374; 96375; 99285; J1885; J2405; J7030